=== PATIENT | female | born 1945 | race Caucasian/White ===

== ENCOUNTER 2017-02-08 19:57 | Emergency (ER) | payer OTHER, MEDICAID ==
[~2017-02-08] VITALS: Ht 162.6 cm; Wt 84.8 kg
[~2017-02-08 19:57] MED LIST: AGG25C PO; ARIP5TAB13 PO; BACL10TA PO; CARB25TA77 PO; CITA-73 PO; HYDR25TA4 PO; LEVE100020 PO; LEVO25TA6 PO; LISI40TA PO; MIRT30TA PO; NITR400A5 SL; NOR10T PO; OMEP20CA5 PO; ROPI1TAB2 PO; SERT-274 PO; TEMA15CA PO
[2017-02-08 23:07] LABS: Basophils # (auto) 0.1 uL; Basophils % (auto) 1.4 % (0.0-2.0); Eosinophils # (auto) 0.5 uL; Eosinophils % (auto) 5.9 % (0.0-7.0); Hematocrit 37.5 % (36.0-46.0); Hemoglobin 12.1 g/dL (12.2-16.2); Lymphocytes # (auto) 2.5 uL; Lymphocytes % (auto) 28.4 % (10.0-50.0); Mean Corpuscular Hemoglobin 27.3 pg (28.0-32.0); Mean Corpuscular Hgb Conc. 32.4 g/dL (32.0-36.0); Mean Corpuscular Volume 84.3 fL (80.0-100.0); Mean Platelet Volume 9.3 fL (7.4-10.4); Monocytes % (auto) 11.2 % (0.0-12.0); Neutrophils # (auto) 4.6 uL; Neutrophils % (auto) 53.1 % (37.0-80.0); Platelet Count (auto) 297 10^3/uL (140-450); White Blood Cell 8.8 10^3/uL (4.4-10.8)
[2017-02-08 23:29] LABS: Albumin 2.9 g/dL (3.4-5.0); Alkaline Phosphatase 89 U/L (45-117); Anion Gap 7 (5-15); Aspartate Aminotransferase 15 U/L (15-37); BUN/Creatinine Ratio 22.2; Bilirubin, Total 0.2 mg/dL (0.2-1.0); Blood Urea Nitrogen 18 mg/dL (7-18); Calcium 8.3 mg/dL (8.5-10.1); Carbon Dioxide 30 mmol/L (21-32); Chloride 107 mmol/L (98-107); GFR African American 90 mL/min; GFR Non-African American 74 mL/min; Glucose 99 mg/dL (74-106); Potassium 3.9 mmol/L (3.5-5.1); Sodium 144 mmol/L (136-145); Total Protein 7.5 g/dL (6.4-8.2)
[2017-02-09] MEDS ORDERED: MORPHINE SULFATE 4 MG/ML SYRG IV ONE (00:30)
[2017-02-09] MEDS ORDERED: ONDANSETRON HCL 4 MG/2 ML VIAL IV ONE (00:30)
[2017-02-09 00:52] LABS: INR 0.95 (0.9-1.15); Prothrombin Time 10.3 sec (9.37-12.3)
[2017-02-09] MEDS ORDERED: IPRATROPIUM BROM 0.5 MG/2.5ML INH SOL NEB ONE (04:00)
[2017-02-09] MEDS ORDERED: ALBUTEROL SULF 2.5 MG/0.5ML(0.5%) NEB SOLN NEB ONE (04:00)
[2017-02-09 05:38] VITALS: BP 158/62
== END 2017-02-09 06:12 | disposition home or self-care (01) ==
LOC: ER 20:01
DX: R04.0 Epistaxis (principal); I10 Essential (primary) hypertension; I11.0 Hypertensive heart disease with heart failure; I50.9 Heart failure, unspecified; J44.9 Chronic obstructive pulmonary disease, unspecified; K21.9 Gastro-esophageal reflux disease without esophagitis; F17.210 Nicotine dependence, cigarettes, uncomplicated; Z90.710 Acquired absence of both cervix and uterus; Z98.890 Other specified postprocedural states; Z88.1 Allergy status to other antibiotic agents; Z88.0 Allergy status to penicillin; Z88.2 Allergy status to sulfonamides
CPT/HCPCS: 36415; 71010; 80053; 84484; 85025; 85610; 85730; 93005; 94640; 96374; 96375; 99285; J2270; J2405

== ENCOUNTER 2017-08-24 09:36 | Emergency (ER) | payer OTHER, MEDICAID ==
[~2017-08-24] VITALS: Ht 162.6 cm; Wt 75.7 kg
[~2017-08-24 09:36] MED LIST changes: -ARIP5TAB13 PO; +ARIP5TAB14 PO; -OMEP20CA5 PO; +OMEP20CA74 PO
[2017-08-24 10:12] LABS: Basophils # (auto) 0 uL; Basophils % (auto) 0.3 % (0.0-2.0); Eosinophils # (auto) 0.1 uL; Eosinophils % (auto) 0.8 % (0.0-7.0); Hematocrit 38.5 % (36.0-46.0); Hemoglobin 12.7 g/dL (12.2-16.2); Lymphocytes # (auto) 1.7 uL; Lymphocytes % (auto) 24.9 % (10.0-50.0); Mean Corpuscular Volume 88.1 fL (80.0-100.0); Mean Platelet Volume 8.8 fL (6.9-10.8); Monocytes # (auto) 0.6 uL; Monocytes % (auto) 8.5 % (0.0-12.0); Neutrophils # (auto) 4.6 uL; Neutrophils % (auto) 65.5 % (37.0-80.0); Platelet Count (auto) 318 10^3/uL (140-450); Red Cell Distribution Width 16.4 % (11.8-14.3)
[2017-08-24 10:30] LABS: Alkaline Phosphatase 84 U/L (45-117); Anion Gap 7 (5-15); Aspartate Aminotransferase 11 U/L (15-37); BUN/Creatinine Ratio 12.3; Bilirubin, Total 0.4 mg/dL (0.2-1.0); Blood Urea Nitrogen 9 mg/dL (7-18); Calcium 8.6 mg/dL (8.5-10.1); Carbon Dioxide 27 mmol/L (21-32); Chloride 103 mmol/L (98-107); GFR African American 101 mL/min; GFR Non-African American 84 mL/min; Glucose 86 mg/dL (74-106); Magnesium 2.3 mg/dL (1.6-2.6); Potassium 4.6 mmol/L (3.5-5.1); Sodium 137 mmol/L (136-145); Total Protein 7.6 g/dL (6.4-8.2)
[2017-08-24 12:30] VITALS: BP 193/95
[2017-08-24] MEDS ORDERED: NITROFURANTOIN (MONO) 100 mg CAP PO ONE (12:30)
[2017-08-24] MEDS ORDERED: cloNIDine HCL 0.1 MG TAB PO ONE (12:45)
== END 2017-08-24 13:50 | disposition home or self-care (01) ==
LOC: EDBD 09:36 → ER 09:36
DX: R07.89 Other chest pain (principal); J44.9 Chronic obstructive pulmonary disease, unspecified; I50.9 Heart failure, unspecified; I11.0 Hypertensive heart disease with heart failure; F17.210 Nicotine dependence, cigarettes, uncomplicated; R06.02 Shortness of breath; Z88.1 Allergy status to other antibiotic agents; Z88.0 Allergy status to penicillin; Z90.710 Acquired absence of both cervix and uterus; Z79.899 Other long term (current) drug therapy
CPT/HCPCS: 36415; 71010; 80053; 83735; 84484; 85025; 93005; 94761

== ENCOUNTER 2017-11-21 17:54 | Inpatient (IN) | payer OTHER, MEDICAID ==
[~2017-11-21] VITALS: Ht 162.6 cm; Wt 77.1 kg
[~2017-11-21 17:54] MED LIST changes: +AGG25C; +ALPR0.254; +BACL10TA; +CARB25TA75; +CHL4PW; +CITA-77; +FAMO40TA49; +FLUT110A; +HYDR-2595; +LEVE100020; +LISI40TA; +OMEP20TA44; +ROPI1TAB2; +SERT-160; +TRAZ50TA2
[2017-11-21 19:00] LABS: Urine Bacteria NONE SEEN /hpf (None Seen); Urine Blood 3+ /uL (Negative); Urine Mucus FEW (None Seen); Urine Specific Gravity 1.018 (1.001-1.035); Urine WBC 14 /hpf (0 - 5)
[2017-11-21 19:13] LABS: Basophils # (auto) 0.2 uL; Basophils % (auto) 2.4 % (0.0-2.0); Eosinophils # (auto) 0.1 uL; Eosinophils % (auto) 1.9 % (0.0-7.0); Hematocrit 38.9 % (36.0-46.0); Hemoglobin 12.8 g/dL (12.2-16.2); Lymphocytes # (auto) 2.2 uL; Mean Corpuscular Volume 88.1 fL (80.0-100.0); Monocytes # (auto) 0.8 uL; Monocytes % (auto) 10.7 % (0.0-12.0); Neutrophils # (auto) 3.7 uL; Nucleated Red Blood Cells % 0.1 %; Platelet Count (auto) 279 10^3/uL (140-450); Red Blood Cells 4.41 10^6/uL (4.0-5.20); Red Cell Distribution Width 17.9 % (11.8-14.3)
[2017-11-21 19:30] LABS: Alanine Aminotransferase < 6 U/L (13-56); Albumin 3.2 g/dL (3.4-5.0); Anion Gap 7 (5-15); Aspartate Aminotransferase 16 U/L (15-37); BUN/Creatinine Ratio 25.4; Blood Urea Nitrogen 17 mg/dL (7-18); Calcium 8.9 mg/dL (8.5-10.1); Carbon Dioxide 27 mmol/L (21-32); Chloride 102 mmol/L (98-107); GFR African American 112 mL/min; GFR Non-African American 92 mL/min; Glucose 88 mg/dL (74-106); Potassium 3.5 mmol/L (3.5-5.1); Sodium 136 mmol/L (136-145)
[2017-11-21 19:33] LABS: Alkaline Phosphatase 68 U/L (45-117); Bilirubin, Total 0.2 mg/dL (0.2-1.0); Total Protein 7.8 g/dL (6.4-8.2)
[2017-11-21] MEDS ORDERED: cloNIDine HCL 0.1 MG TAB ONE (23:45)
[2017-11-22] MEDS ORDERED: cloNIDine HCL 0.1 MG TAB PO ONE (00:15)
[2017-11-22] MEDS ORDERED: MORPHINE SULFATE 10 MG/ML INJ 1ML SDV IV ONE (01:30)
[2017-11-22] MEDS ORDERED: ONDANSETRON HCL 4 MG/2 ML VIAL IV ONE (01:30)
[2017-11-22 01:58] LABS: Amylase 37 U/L (25-115); Lipase 108 U/L (73-393)
[2017-11-22] MEDS: SODIUM CHLORIDE 0.9% 1,000 ML IV SCH ×3 (06:16→23:42)
[2017-11-22] MEDS ORDERED: ONDANSETRON HCL 4 MG/2 ML VIAL IV PRN (06:30)
[2017-11-22] MEDS ORDERED: CARBIDOPA W LEVODOPA 25/100mg TABLET PO ONE (06:30)
[2017-11-22] MEDS ORDERED: MORPHINE SULFATE 10 MG/ML INJ 1ML SDV IV PRN (06:30)
[2017-11-22] MEDS ORDERED: cloNIDine HCL 0.1 MG TAB PO PRN (06:30)
[2017-11-22] MEDS ORDERED: TEMAZEPAM 15 MG CAP PO PRN (06:30)
[2017-11-22] MEDS ORDERED: NITROGLYCERIN 0.4 MG SL TAB SL PRN (06:30)
[2017-11-22] MEDS ORDERED: ACETAMINOPHEN 325 MG TAB PO PRN (06:30)
[2017-11-22 06:55] LABS: Hemoglobin 13.5 g/dL (12.2-16.2)
[2017-11-22] MEDS ORDERED: LEVE500T22 PO (10:24)
[2017-11-22] MEDS ORDERED: HYDR-4683 PO (10:24)
[2017-11-22] MEDS ORDERED: ALPR1TAB7 PO (10:24)
[2017-11-22 10:26] VITALS: BP 169/71
[2017-11-22] MEDS: SERTRALINE HCL 50 MG TAB PO SCH (10:27)
[2017-11-22] MEDS: PANTOPRAZOLE 40 MG/10 ML VIAL IV SCH (10:27)
[2017-11-22] MEDS: LISINOPRIL 20 MG TAB PO SCH (10:28)
[2017-11-22] MEDS: CITALOPRAM HYDROBR 20 MG TAB PO SCH (10:28)
[2017-11-22] MEDS: LEVETIRACETAM 500 MG TAB PO SCH ×2 (10:28→21:45)
[2017-11-22] MEDS: cefTRIAXone 1GM/10ml IVPUSH 10 ML IV SCH (10:29)
[2017-11-22] MEDS: HYDROcodone-ACET 5/325MG TAB PO PRN ×2 (10:44→16:06)
[2017-11-22 12:30] LABS: INR 0.95 (0.9-1.15); Prothrombin Time 10.4 sec (9.37-12.3)
[2017-11-22 17:00] VITALS: BP 174/74
[2017-11-22 22:00] VITALS: BP 131/66
[2017-11-23 05:46] VITALS: BP 145/65
[2017-11-23 06:57] LABS: Albumin 2.8 g/dL (3.4-5.0); BUN/Creatinine Ratio 16.9; Calcium 8.5 mg/dL (8.5-10.1); Magnesium 2.1 mg/dL (1.6-2.6); Potassium 3.9 mmol/L (3.5-5.1)
[2017-11-23 06:59] LABS: Basophils # (auto) 0.1 uL; Basophils % (auto) 1.2 % (0.0-2.0); Bilirubin, Total 0.4 mg/dL (0.2-1.0); Eosinophils # (auto) 0.1 uL; Eosinophils % (auto) 1.6 % (0.0-7.0); Hematocrit 35.4 % (36.0-46.0); Hemoglobin 11.7 g/dL (12.2-16.2); Lymphocytes # (auto) 1.2 uL; Lymphocytes % (auto) 16.8 % (10.0-50.0); Mean Corpuscular Hemoglobin 29.2 pg (28.0-32.0); Mean Corpuscular Hgb Conc. 33.1 g/dL (32.0-36.0); Mean Corpuscular Volume 88.1 fL (80.0-100.0); Monocytes # (auto) 0.8 uL; Monocytes % (auto) 11.2 % (0.0-12.0); Neutrophils % (auto) 69.2 % (37.0-80.0); Platelet Count (auto) 255 10^3/uL (140-450); Red Blood Cells 4.02 10^6/uL (4.0-5.20); Red Cell Distribution Width 17.4 % (11.8-14.3); Total Protein 6.8 g/dL (6.4-8.2); White Blood Cell 7.3 10^3/uL (4.4-10.8)
[2017-11-23 08:53] VITALS: BP 140/61
[2017-11-23] MEDS: cefTRIAXone 1GM/10ml IVPUSH 10 ML IV SCH (09:00)
[2017-11-23] MEDS: CITALOPRAM HYDROBR 20 MG TAB PO SCH (10:30)
[2017-11-23] MEDS: LEVETIRACETAM 500 MG TAB PO SCH (10:30)
[2017-11-23] MEDS: SERTRALINE HCL 50 MG TAB PO SCH (10:30)
[2017-11-23] MEDS: PANTOPRAZOLE 40 MG/10 ML VIAL IV SCH (10:30)
[2017-11-23] MEDS: LISINOPRIL 20 MG TAB PO SCH (10:31)
[2017-11-23 13:19] VITALS: BP 144/71
[2017-11-23 13:24] VITALS: BP 144/71
== END 2017-11-23 15:00 | disposition home or self-care (01) | DRG 292 ==
LOC: ER 17:54 → EDBD 17:54 → EDUNIT# 17:55 → TELE 17:55 → TELE-CENTR 11-22 08:19
PROVIDERS: ADMIT Nurse Practitioner; ATTEND Internal Medicine
DX: I11.0 Hypertensive heart disease with heart failure (principal); N39.0 Urinary tract infection, site not specified; J44.9 Chronic obstructive pulmonary disease, unspecified; G40.909 Epilepsy, unspecified, not intractable, without status epilepticus; I50.9 Heart failure, unspecified; R31.0 Gross hematuria; F41.9 Anxiety disorder, unspecified; F32.9 Major depressive disorder, single episode, unspecified; R59.1 Generalized enlarged lymph nodes; K57.50 Diverticulosis of both small and large intestine without perforation or abscess without bleeding; Z80.0 Family history of malignant neoplasm of digestive organs; Z80.1 Family history of malignant neoplasm of trachea, bronchus and lung; Z80.3 Family history of malignant neoplasm of breast; Z80.41 Family history of malignant neoplasm of ovary; Z80.8 Family history of malignant neoplasm of other organs or systems; Z81.8 Family history of other mental and behavioral disorders; Z82.5 Family history of asthma and other chronic lower respiratory diseases; Z82.49 Family history of ischemic heart disease and other diseases of the circulatory system; Z82.62 Family history of osteoporosis; Z82.3 Family history of stroke; Z82.0 Family history of epilepsy and other diseases of the nervous system; Z83.3 Family history of diabetes mellitus; Z86.73 Personal history of transient ischemic attack (TIA), and cerebral infarction without residual deficits; Z90.49 Acquired absence of other specified parts of digestive tract; Z90.710 Acquired absence of both cervix and uterus; Z88.1 Allergy status to other antibiotic agents; Z88.0 Allergy status to penicillin; Z88.2 Allergy status to sulfonamides; Z88.8 Allergy status to other drugs, medicaments and biological substances
CPT/HCPCS: 36415; 74176; 80053; 81001; 82150; 82270; 83690; 83735; 85014; 85018; 85025; 85610; 87081; 87086; 93005; 96361; 96374; 96375; C9113; J2405

== ENCOUNTER 2017-12-05 15:22 | Inpatient (IN) | payer OTHER, MEDICAID ==
[~2017-12-05] VITALS: Ht 170.2 cm; Wt 81.6 kg
[~2017-12-05 15:22] MED LIST changes: -AGG25C; -ALPR0.254; +ALPR1TAB7 PO; -BACL10TA; -CARB25TA75; -CHL4PW; -CITA-77; -FAMO40TA49; -FLUT110A; -HYDR-2595; +HYDR-4683 PO; -LEVE100020; +LEVE500T22 PO; -LISI40TA; -OMEP20TA44; -ROPI1TAB2; -SERT-160; -TRAZ50TA2
[2017-12-05 19:40] LABS: Basophils # (auto) 0 uL; Basophils % (auto) 0.2 % (0.0-2.0); Eosinophils # (auto) 0.2 uL; Eosinophils % (auto) 2.4 % (0.0-7.0); Hematocrit 36.8 % (36.0-46.0); Hemoglobin 12.3 g/dL (12.2-16.2); Lymphocytes # (auto) 2.4 uL; Lymphocytes % (auto) 27.8 % (10.0-50.0); Mean Corpuscular Hgb Conc. 33.3 g/dL (32.0-36.0); Monocytes # (auto) 1.2 uL; Monocytes % (auto) 13.4 % (0.0-12.0); Neutrophils # (auto) 4.8 uL; Neutrophils % (auto) 56.2 % (37.0-80.0); Platelet Count (auto) 308 10^3/uL (140-450); Red Blood Cells 4.23 10^6/uL (4.0-5.20); Red Cell Distribution Width 17.5 % (11.8-14.3); White Blood Cell 8.6 10^3/uL (4.4-10.8)
[2017-12-05 19:45] LABS: INR 0.98 (0.9-1.15); Partial Thromboplastin Time 28.6 sec (22.64-33.71); Prothrombin Time 10.7 sec (9.37-12.3)
[2017-12-05 19:46] LABS: Alanine Aminotransferase 8 U/L (13-56); Anion Gap 11 (5-15); Aspartate Aminotransferase 16 U/L (15-37); BUN/Creatinine Ratio 15.2; Blood Urea Nitrogen 10 mg/dL (7-18); Calcium 8.5 mg/dL (8.5-10.1); Carbon Dioxide 24 mmol/L (21-32); Chloride 101 mmol/L (98-107); GFR African American 114 mL/min; GFR Non-African American 94 mL/min; Glucose 83 mg/dL (74-106); Magnesium 1.8 mg/dL (1.6-2.6); Potassium 3.5 mmol/L (3.5-5.1); Sodium 136 mmol/L (136-145)
[2017-12-05 19:52] LABS: Alkaline Phosphatase 77 U/L (45-117); Bilirubin, Total 0.3 mg/dL (0.2-1.0); Total Protein 7.8 g/dL (6.4-8.2)
[2017-12-05] MEDS ORDERED: MORPHINE SULF INJ 2 MG/ML SYRINGE 1ML IV PRN (23:00)
[2017-12-05] MEDS ORDERED: ONDANSETRON HCL 4 MG/2 ML VIAL IV PRN (23:00)
[2017-12-05] MEDS ORDERED: NITROGLYCERIN 0.4 MG SL TAB SL PRN (23:00)
[2017-12-05] MEDS ORDERED: cloNIDine HCL 0.1 MG TAB PO ONE (23:00)
[2017-12-05] MEDS ORDERED: TEMAZEPAM 15 MG CAP PO PRN (23:00)
[2017-12-05] MEDS: LORazepam 0.5 MG TAB PO PRN (23:51)
[2017-12-05] MEDS: HYDROcodone-ACET 5/325MG TAB PO PRN (23:51)
[2017-12-06] VITALS (7 sets, daily range): BP systolic 115–162; BP diastolic 46–73
[2017-12-06] MEDS ORDERED: cloNIDine HCL 0.1 MG TAB PO PRN (00:45)
[2017-12-06 01:45] LABS: Urine Bacteria FEW /hpf (None Seen); Urine Blood Negative /uL (Negative); Urine Specific Gravity 1.008 (1.001-1.035); Urine WBC 3 /hpf (0 - 5)
[2017-12-06] MEDS ORDERED: ONDA8TAB6 PO (02:41)
[2017-12-06] MEDS ORDERED: AMLO5TAB2 PO (02:41)
[2017-12-06] MEDS ORDERED: DONE10TA40 PO (02:41)
[2017-12-06] MEDS ORDERED: CLON0.2T PO (02:41)
[2017-12-06] MEDS ORDERED: [UNRECOGNIZED DRUG - CODE] PO (02:41)
[2017-12-06] MEDS ORDERED: OLAN10TA29 PO (02:41)
[2017-12-06] MEDS ORDERED: METO25TA5 PO (02:43)
[2017-12-06] MEDS ORDERED: ALPR1TAB7 PO (02:43)
[2017-12-06] MEDS ORDERED: BUSP5TAB51 PO (02:44)
[2017-12-06] MEDS: HYDROcodone-ACET 5/325MG TAB PO PRN (05:34)
[2017-12-06] MEDS: CARBIDOPA W LEVODOPA 25/100mg TABLET PO SCH ×2 (06:06→13:33)
[2017-12-06] MEDS: ALBUTEROL SULF 2.5 MG/0.5ML(0.5%) NEB SOLN NEB SCH ×2 (06:41→11:47)
[2017-12-06] MEDS: IPRATROPIUM BROM 0.5 MG/2.5ML INH SOL NEB SCH ×2 (06:41→11:47)
[2017-12-06] MEDS ORDERED: LEVOTHYROXINE SODIUM 25 MCG TAB PO SCH (07:00)
[2017-12-06 07:17] LABS: Basophils # (auto) 0.1 uL; Basophils % (auto) 1.9 % (0.0-2.0); Eosinophils # (auto) 0.2 uL; Eosinophils % (auto) 2.6 % (0.0-7.0); Hematocrit 36.5 % (36.0-46.0); Lymphocytes # (auto) 1.2 uL; Lymphocytes % (auto) 20.9 % (10.0-50.0); Mean Corpuscular Hemoglobin 28.8 pg (28.0-32.0); Mean Corpuscular Hgb Conc. 32.9 g/dL (32.0-36.0); Mean Corpuscular Volume 87.5 fL (80.0-100.0); Monocytes # (auto) 0.7 uL; Monocytes % (auto) 11.7 % (0.0-12.0); Neutrophils # (auto) 3.7 uL; Neutrophils % (auto) 62.9 % (37.0-80.0); Nucleated Red Blood Cells % 0.1 %; Platelet Count (auto) 301 10^3/uL (140-450); Red Blood Cells 4.18 10^6/uL (4.0-5.20); Red Cell Distribution Width 17.1 % (11.8-14.3); White Blood Cell 5.9 10^3/uL (4.4-10.8)
[2017-12-06 07:32] LABS: BUN/Creatinine Ratio 10.6; Calcium 8.4 mg/dL (8.5-10.1); Potassium 3.6 mmol/L (3.5-5.1)
[2017-12-06] MEDS ORDERED: ASPirin-EC 81 mg tab PO SCH (10:00)
[2017-12-06] MEDS ORDERED: LISINOPRIL 20 MG TAB PO SCH (10:00)
[2017-12-06] MEDS ORDERED: LEVETIRACETAM 500 MG TAB PO SCH (10:00)
[2017-12-06] MEDS ORDERED: amLODIPine BESYLATE 5 MG TAB PO SCH (13:30)
[2017-12-06] MEDS: LORazepam 0.5 MG TAB PO PRN (13:33)
== END 2017-12-06 18:40 | disposition home health service (06) | DRG 313 ==
LOC: ER 15:22 → EDBD 15:22 → TELE 15:23 → TELE-EAST 23:49
PROVIDERS: ADMIT Nurse Practitioner Family; ATTEND Internal Medicine
DX: R07.89 Other chest pain (principal); G20 Parkinson's disease; I11.0 Hypertensive heart disease with heart failure; I50.42 Chronic combined systolic (congestive) and diastolic (congestive) heart failure; G40.909 Epilepsy, unspecified, not intractable, without status epilepticus; J44.9 Chronic obstructive pulmonary disease, unspecified; G89.29 Other chronic pain; M54.5 Low back pain; E66.9 Obesity, unspecified; F32.9 Major depressive disorder, single episode, unspecified; E03.9 Hypothyroidism, unspecified; G25.81 Restless legs syndrome; F17.210 Nicotine dependence, cigarettes, uncomplicated; F41.9 Anxiety disorder, unspecified; Z79.899 Other long term (current) drug therapy; Z82.0 Family history of epilepsy and other diseases of the nervous system; Z82.3 Family history of stroke; Z82.49 Family history of ischemic heart disease and other diseases of the circulatory system; Z83.3 Family history of diabetes mellitus; Z86.73 Personal history of transient ischemic attack (TIA), and cerebral infarction without residual deficits; Z90.710 Acquired absence of both cervix and uterus; Z68.28 Body mass index [BMI] 28.0-28.9, adult; Z88.1 Allergy status to other antibiotic agents; Z88.0 Allergy status to penicillin; Z88.2 Allergy status to sulfonamides
CPT/HCPCS: 36415; 71045; 80048; 80053; 81001; 83735; 83880; 84484; 85025; 85610; 85730; 87081; 93005; 94640

== ENCOUNTER 2018-01-14 10:40 | Inpatient (IN) | payer OTHER, MEDICAID ==
[~2018-01-14] VITALS: Ht 162.6 cm; Wt 67.6 kg
[~2018-01-14 10:40] MED LIST changes: -AGG25C PO; +AMLO5TAB2 PO; -ARIP5TAB14 PO; +BUSP5TAB51 PO; +DONE10TA40 PO; -HYDR25TA4 PO; -MIRT30TA PO; -NOR10T PO; +OLAN10TA29 PO; -OMEP20CA74 PO; -SERT-274 PO; -TEMA15CA PO
[2018-01-14 11:22] LABS: Basophils # (auto) 0.1 uL; Basophils % (auto) 1.1 % (0.0-2.0); Eosinophils # (auto) 0.1 uL; Eosinophils % (auto) 2.1 % (0.0-7.0); Hematocrit 40.9 % (36.0-46.0); Hemoglobin 13.8 g/dL (12.2-16.2); Lymphocytes # (auto) 1.4 uL; Lymphocytes % (auto) 20.9 % (10.0-50.0); Mean Corpuscular Hemoglobin 29.2 pg (28.0-32.0); Mean Corpuscular Hgb Conc. 33.6 g/dL (32.0-36.0); Mean Corpuscular Volume 86.8 fL (80.0-100.0); Monocytes # (auto) 0.6 uL; Monocytes % (auto) 8.8 % (0.0-12.0); Neutrophils # (auto) 4.7 uL; Neutrophils % (auto) 67.1 % (37.0-80.0); Nucleated Red Blood Cells % 0.1 %; Platelet Count (auto) 315 10^3/uL (140-450); Red Blood Cells 4.71 10^6/uL (4.0-5.20); Red Cell Distribution Width 15.8 % (11.8-14.3); White Blood Cell 6.9 10^3/uL (4.4-10.8)
[2018-01-14 11:35] LABS: INR 0.96 (0.9-1.15); Partial Thromboplastin Time 28.5 sec (22.64-33.71); Prothrombin Time 10.5 sec (9.37-12.3)
[2018-01-14 11:39] LABS: Alanine Aminotransferase 12 U/L (13-56); Albumin 3.2 g/dL (3.4-5.0); Alkaline Phosphatase 81 U/L (45-117); Anion Gap 7 (5-15); Aspartate Aminotransferase 17 U/L (15-37); BUN/Creatinine Ratio 11.8; Bilirubin, Total 0.2 mg/dL (0.2-1.0); Blood Urea Nitrogen 9 mg/dL (7-18); Calcium 8.7 mg/dL (8.5-10.1); Carbon Dioxide 25 mmol/L (21-32); Chloride 108 mmol/L (98-107); GFR African American 96 mL/min; GFR Non-African American 80 mL/min; Glucose 90 mg/dL (74-106); Magnesium 2.3 mg/dL (1.6-2.6); Potassium 3.8 mmol/L (3.5-5.1); Sodium 140 mmol/L (136-145); Total Protein 8.5 g/dL (6.4-8.2)
[2018-01-14 12:38] LABS: Urine Bacteria FEW /hpf (None Seen); Urine Blood TRACE /uL (Negative); Urine Specific Gravity 1.007 (1.001-1.035); Urine WBC 5 /hpf (0 - 5)
[2018-01-14] MEDS ORDERED: ENALAPRILAT 1.25 MG/ML-1ML VIAL IV PRN (13:45)
[2018-01-14] MEDS ORDERED: LORazepam 2MG/ML-1ML VIAL IV PRN (13:45)
[2018-01-14] MEDS ORDERED: BACLOFEN 10 MG TAB PO PRN (13:45)
[2018-01-14] MEDS ORDERED: PANTOPRAZOLE 40 MG/10 ML VIAL IV ONE (13:45)
[2018-01-14] MEDS ORDERED: cefTRIAXone 1GM/10ml IVPUSH 10 ML IV ONE (13:45)
[2018-01-14] MEDS ORDERED: LEVOTHYROXINE SODIUM 25 MCG TAB PO ONE (14:00)
[2018-01-14] MEDS ORDERED: amLODIPine BESYLATE 5 MG TAB PO ONE (14:00)
[2018-01-14] MEDS ORDERED: MORPHINE SULFATE 4 MG/ML SYR/VIAL IV PRN ×2 (14:15)
[2018-01-14] MEDS ORDERED: ACETAMINOPHEN 325 MG TAB PO PRN (14:15)
[2018-01-14] MEDS ORDERED: ASPirin-EC 81 mg tab PO ONE (14:15)
[2018-01-14] MEDS ORDERED: DOCUSATE SOD 100 MG CAP PO PRN (14:15)
[2018-01-14] MEDS ORDERED: TEMAZEPAM 15 MG CAP PO PRN (14:15)
[2018-01-14] MEDS ORDERED: ONDANSETRON HCL 4 MG/2 ML VIAL IV PRN (14:15)
[2018-01-14] MEDS ORDERED: NITROGLYCERIN 0.4 MG SL TAB SL PRN (14:15)
[2018-01-14] MEDS: HYDROcodone-ACET 5/325MG TAB PO PRN (14:48)
[2018-01-14] MEDS: ENOXAPARIN SOD 40 MG/0.4 ML SYRINGE SC SCH (14:48)
[2018-01-14] MEDS: cloNIDine HCL 0.1 MG TAB PO PRN (16:40)
[2018-01-14] MEDS: ALPRAZolam 0.5 MG TAB PO PRN (16:40)
[2018-01-14] MEDS: CARBIDOPA W LEVODOPA 25/100mg TABLET PO SCH ×2 (18:00→22:48)
[2018-01-14] MEDS: BOOST PLUS 8 ounce PO SCH (18:53)
[2018-01-14 20:00] VITALS: BP 105/46
[2018-01-14 22:00] VITALS: BP 105/46
[2018-01-14] MEDS ORDERED: DONEPEZIL HYDROCHLORIDE 5 MG TAB PO SCH (22:00)
[2018-01-14] MEDS ORDERED: FAMOTIDINE 20 MG TAB PO SCH (22:00)
[2018-01-14] MEDS ORDERED: ATORVASTATIN 20 MG TAB PO SCH (22:00)
[2018-01-14] MEDS: LEVETIRACETAM 500 MG TAB PO SCH (22:46)
[2018-01-14] MEDS: busPIRone HCL 10 MG TAB PO SCH (22:47)
[2018-01-14] MEDS: SODIUM CHLOR 0.9% PF (SALINE LOCK) 10ML VIAL IV SCH (22:49)
[2018-01-14 23:16] VITALS: BP 105/46
[2018-01-15] MEDS: HYDROcodone-ACET 5/325MG TAB PO PRN (02:22)
[2018-01-15 05:00] VITALS: BP 134/65
[2018-01-15] MEDS: ALPRAZolam 0.5 MG TAB PO PRN ×2 (05:05→16:43)
[2018-01-15] MEDS: CARBIDOPA W LEVODOPA 25/100mg TABLET PO SCH ×2 (06:09→11:56)
[2018-01-15 06:29] LABS: Basophils # (auto) 0.1 uL; Eosinophils # (auto) 0.2 uL; Eosinophils % (auto) 2.5 % (0.0-7.0); Hematocrit 42.3 % (36.0-46.0); Hemoglobin 13.8 g/dL (12.2-16.2); Lymphocytes # (auto) 1.9 uL; Lymphocytes % (auto) 26.1 % (10.0-50.0); Mean Corpuscular Hemoglobin 28.8 pg (28.0-32.0); Mean Corpuscular Hgb Conc. 32.8 g/dL (32.0-36.0); Monocytes # (auto) 0.8 uL; Monocytes % (auto) 10.5 % (0.0-12.0); Neutrophils # (auto) 4.3 uL; Neutrophils % (auto) 59.9 % (37.0-80.0); Nucleated Red Blood Cells % 0.1 %; Platelet Count (auto) 255 10^3/uL (140-450); Red Cell Distribution Width 15.9 % (11.8-14.3); White Blood Cell 7.2 10^3/uL (4.4-10.8)
[2018-01-15] MEDS: SODIUM CHLOR 0.9% PF (SALINE LOCK) 10ML VIAL IV SCH ×2 (06:42→13:33)
[2018-01-15 06:47] LABS: Alanine Aminotransferase < 6 U/L (13-56); Alkaline Phosphatase 74 U/L (45-117); Anion Gap 8 (5-15); Aspartate Aminotransferase 19 U/L (15-37); BUN/Creatinine Ratio 14.7; Bilirubin, Total 0.3 mg/dL (0.2-1.0); Blood Urea Nitrogen 11 mg/dL (7-18); Calcium 8.9 mg/dL (8.5-10.1); Carbon Dioxide 26 mmol/L (21-32); Chloride 106 mmol/L (98-107); GFR African American 98 mL/min; GFR Non-African American 81 mL/min; Glucose 79 mg/dL (74-106); Potassium 3.7 mmol/L (3.5-5.1); Sodium 140 mmol/L (136-145)
[2018-01-15] MEDS ORDERED: LEVOTHYROXINE SODIUM 25 MCG TAB PO SCH (07:00)
[2018-01-15 09:00] VITALS: BP 129/63
[2018-01-15] MEDS ORDERED: cefTRIAXone 1GM/10ml IVPUSH 10 ML IV SCH (09:00)
[2018-01-15] MEDS: BOOST PLUS 8 ounce PO SCH ×2 (09:38→11:56)
[2018-01-15] MEDS: ENOXAPARIN SOD 40 MG/0.4 ML SYRINGE SC SCH (09:39)
[2018-01-15] MEDS: LEVETIRACETAM 500 MG TAB PO SCH (09:40)
[2018-01-15] MEDS: busPIRone HCL 10 MG TAB PO SCH (09:40)
[2018-01-15] MEDS ORDERED: MULTIPLE VITAMIN TAB PO SCH (10:00)
[2018-01-15] MEDS ORDERED: amLODIPine BESYLATE 5 MG TAB PO SCH (10:00)
[2018-01-15] MEDS ORDERED: ASPirin-EC 81 mg tab PO SCH (10:00)
[2018-01-15] MEDS ORDERED: OLANZapine 5 MG TAB PO SCH (10:00)
[2018-01-15] MEDS ORDERED: PANTOPRAZOLE 40 MG/10 ML VIAL IV SCH (10:00)
[2018-01-15 12:30] VITALS: BP 120/54
[2018-01-15 13:59] LABS: Cholesterol 192 mg/dL (< 200); HDL Cholesterol 37 mg/dL (40-59); LDL Cholesterol 143 mg/dL (< 100); Triglycerides 155 mg/dL (< 150)
[2018-01-15] MEDS ORDERED: CLO01T PO (14:58)
[2018-01-15] MEDS: cloNIDine HCL 0.1 MG TAB PO PRN (16:43)
[2018-01-15 17:00] VITALS: BP 177/78
== END 2018-01-15 19:12 | disposition home health service (06) | DRG 305 ==
LOC: EDSEX 10:40 → ER 10:40 → EDBD 10:40 → TELE 10:41 → TELE-WESTW 18:50
PROVIDERS: ADMIT Internal Medicine; ATTEND Internal Medicine
DX: I16.0 Hypertensive urgency (principal); E44.0 Moderate protein-calorie malnutrition; E11.22 Type 2 diabetes mellitus with diabetic chronic kidney disease; G20 Parkinson's disease; N39.0 Urinary tract infection, site not specified; I13.0 Hypertensive heart and chronic kidney disease with heart failure and stage 1 through stage 4 chronic kidney disease, or unspecified chronic kidney disease; I50.9 Heart failure, unspecified; N18.2 Chronic kidney disease, stage 2 (mild); E03.9 Hypothyroidism, unspecified; F03.90 Unspecified dementia, unspecified severity, without behavioral disturbance, psychotic disturbance, mood disturbance, and anxiety; G40.909 Epilepsy, unspecified, not intractable, without status epilepticus; J44.9 Chronic obstructive pulmonary disease, unspecified; G96.8 Other specified disorders of central nervous system; F41.9 Anxiety disorder, unspecified; F32.9 Major depressive disorder, single episode, unspecified; I70.0 Atherosclerosis of aorta; Z82.0 Family history of epilepsy and other diseases of the nervous system; Z82.3 Family history of stroke; Z82.49 Family history of ischemic heart disease and other diseases of the circulatory system; Z68.25 Body mass index [BMI] 25.0-25.9, adult; Z83.3 Family history of diabetes mellitus; Z90.710 Acquired absence of both cervix and uterus; Z88.2 Allergy status to sulfonamides; Z88.1 Allergy status to other antibiotic agents; Z88.0 Allergy status to penicillin; Z88.8 Allergy status to other drugs, medicaments and biological substances; Z79.899 Other long term (current) drug therapy; Z86.73 Personal history of transient ischemic attack (TIA), and cerebral infarction without residual deficits
CPT/HCPCS: 36415; 70450; 70551; 71045; 80053; 80061; 81001; 83036; 83735; 84484; 85025; 85610; 85730; 87086; 92610; 93005; 93306; 93886; 94761; 96361; 96374; 96375; C9113; J2405

== ENCOUNTER 2018-01-29 12:28 | Emergency (ER) | payer OTHER, MEDICAID ==
[~2018-01-29] VITALS: Ht 162.6 cm; Wt 70.3 kg
[~2018-01-29 12:28] MED LIST changes: +CLO01T PO
[2018-01-29] MEDS ORDERED: IPRATROPIUM BROM 0.5 MG/2.5ML INH SOL HHN ONE (13:15)
[2018-01-29] MEDS ORDERED: ALBUTEROL SULF 2.5 MG/0.5ML(0.5%) NEB SOLN HHN ONE (13:15)
[2018-01-29] MEDS ORDERED: methylPREDNISolone SOD SUCC 125 MG/2 ML VL IM ONE (13:15)
[2018-01-29 13:45] LABS: Alcohol, Urine < 3.0 mg/dL (0-5); Amphetamine Screen, Urine NEGATIVE (NEGATIVE); Barbiturate Scree,Urine NEGATIVE (NEGATIVE); Benzodiazephine Screen, Urine POSITIVE (NEGATIVE); Cannabinoid Screen, Urine NEGATIVE (NEGATIVE); Cocaine Screen, Urine NEGATIVE (NEGATIVE); Opiate Scree,Urine NEGATIVE (NEGATIVE); Phencyclidine Screen, Urine NEGATIVE (NEGATIVE)
[2018-01-29 14:06] LABS: Acetaminophen < 2.0 ug/mL (10-30); Salicylate 4.9 mg/dL (2.8-20.0)
[2018-01-29 14:22] VITALS: BP 158/83
== END 2018-01-29 14:26 | disposition home or self-care (01) ==
LOC: ER 12:28 → EDUNIT# 12:28 → EDBD 12:28 → MERGE 12:28 → ER 14:26
DX: F91.9 Conduct disorder, unspecified (principal); F32.9 Major depressive disorder, single episode, unspecified; J44.9 Chronic obstructive pulmonary disease, unspecified; E07.89 Other specified disorders of thyroid; I11.0 Hypertensive heart disease with heart failure; I50.9 Heart failure, unspecified; F17.210 Nicotine dependence, cigarettes, uncomplicated; G20 Parkinson's disease; Z86.73 Personal history of transient ischemic attack (TIA), and cerebral infarction without residual deficits; Z90.710 Acquired absence of both cervix and uterus
CPT/HCPCS: 36415; 80307; 80320; 80329; 94640; 96372; 99284; J2930

== ENCOUNTER 2018-03-16 15:42 | Inpatient (IN) | payer OTHER, MEDICAID ==
[2018-03-15] MEDS: VANCOMYCIN 1GM/250ML 250 ML IV SCH (23:30)
[~2018-03-16] VITALS: Ht 152.4 cm; Wt 69.3 kg
[2018-03-16] VITALS (18 sets, daily range): BP systolic 102–149; BP diastolic 54–77
[~2018-03-16 15:42] MED LIST changes: +AGG25C PO; -BACL10TA PO; -CITA-73 PO; -DONE10TA40 PO; -LEVE100020 PO; +MIRT30TA OR; -NITR400A5 SL; -OLAN10TA29 PO; +OLAN5TAB30 PO
[2018-03-16] MEDS ORDERED: methylPREDNISolone SOD SUCC 125 MG/2 ML VL ONE (15:52)
[2018-03-16] MEDS ORDERED: ETOMIDATE (2MG/ML) 20ML VIAL IV ONE ×2 (15:55→16:30)
[2018-03-16] MEDS ORDERED: MIDAZOLAM DRIP 50 mg/50mL 50 ML IV ONE ×2 (15:55→16:12)
[2018-03-16] MEDS ORDERED: SUCCINYLCHOLINE CHLORIDE 20 MG/ML 10ML VIAL IV ONE ×2 (15:56→16:30)
[2018-03-16] MEDS ORDERED: methylPREDNISolone SOD SUCC 125 MG/2 ML VL IV ONE (16:00)
[2018-03-16 16:10] LABS: Basophils # (auto) 0.1 uL; Basophils % (auto) 0.7 % (0.0-2.0); Eosinophils # (auto) 0.2 uL; Eosinophils % (auto) 0.9 % (0.0-7.0); Hematocrit 49.3 % (36.0-46.0); Lymphocytes # (auto) 2.4 uL; Lymphocytes % (auto) 13.3 % (10.0-50.0); Mean Corpuscular Hemoglobin 29.2 pg (28.0-32.0); Mean Corpuscular Hgb Conc. 32.5 g/dL (32.0-36.0); Mean Corpuscular Volume 89.7 fL (80.0-100.0); Monocytes # (auto) 1.2 uL; Monocytes % (auto) 6.6 % (0.0-12.0); Neutrophils # (auto) 14.4 uL; Neutrophils % (auto) 78.5 % (37.0-80.0); Nucleated Red Blood Cells % 0.1 %; Platelet Count (auto) 365 10^3/uL (140-450); Red Blood Cells 5.49 10^6/uL (4.0-5.20); Red Cell Distribution Width 16.8 % (11.8-14.3); White Blood Cell 18.4 10^3/uL (4.4-10.8)
[2018-03-16 16:24] LABS: INR 1.12 (0.9-1.15); Partial Thromboplastin Time 29.3 sec (22.64-33.71); Prothrombin Time 12.2 sec (9.37-12.3)
[2018-03-16] MEDS ORDERED: MIDAZOLAM DRIP 50 mg/50mL 50 ML IV SCH (16:28)
[2018-03-16 16:33] LABS: Albumin 3.2 g/dL (3.4-5.0); Bilirubin, Total 0.4 mg/dL (0.2-1.0); Calcium 9.1 mg/dL (8.5-10.1); Magnesium 2.5 mg/dL (1.6-2.6); Potassium 3.8 mmol/L (3.5-5.1)
[2018-03-16] MEDS ORDERED: NOREPINEPHRINE 8 MG/250ML KIT 250 ML IV SCH (17:24)
[2018-03-16] MEDS: PROPOFOL 100 ML IV SCH (18:05)
[2018-03-16] MEDS ORDERED: cefTRIAXone 1GM/10ml IVPUSH 10 ML IV ONE (18:15)
[2018-03-16] MEDS ORDERED: DEXTROSE (50%) 50ML SYRG IV PRN (18:15)
[2018-03-16] MEDS ORDERED: VANCOMYCIN PER PHARMACY 0 MG IV SCH (18:15)
[2018-03-16] MEDS: MIDAZOLAM DRIP 50 mg/50mL 50 ML IV SCH ×2 (18:25→23:25)
[2018-03-16] MEDS: NOREPINEPHRINE 8 MG/250ML KIT 250 ML IV SCH (18:25)
[2018-03-16] MEDS: SODIUM CHLORIDE 0.9% 1,000 ML IV SCH (18:29)
[2018-03-16] MEDS ORDERED: MORPHINE SULFATE 4 MG/ML SYR/VIAL IV PRN (18:30)
[2018-03-16] MEDS ORDERED: ONDANSETRON HCL 4 MG/2 ML VIAL IV PRN (18:30)
[2018-03-16] MEDS ORDERED: NITROGLYCERIN 0.4 MG SL TAB SL PRN (18:30)
[2018-03-16] MEDS ORDERED: SODIUM CHLORIDE 0.9% 2,000 ML IV ONE (18:45)
[2018-03-16] MEDS ORDERED: FAMOTIDINE (10MG/ML) 2ML VL IV ONE (18:45)
[2018-03-16] MEDS ORDERED: LORazepam 2MG/ML-1ML VIAL IV PRN (18:45)
[2018-03-16] MEDS ORDERED: PANTOPRAZOLE 40 MG/10 ML VIAL IV ONE (18:50)
[2018-03-16 19:15] LABS: Lactic Acid w/Reflex 4.3 mmol/L (0.4-2.0)
[2018-03-16 19:35] LABS: Urine Amorphous Crystal MOD /hpf (None Seen); Urine Bacteria FEW /hpf (None Seen); Urine Blood 2+ /uL (Negative); Urine Mucus FEW (None Seen); Urine Specific Gravity 1.022 (1.001-1.035); Urine WBC 5 /hpf (0 - 5)
[2018-03-16] MEDS: LEVETIRACETAM INJ 1,000 MG in D5W 5% 100 ML IV SCH (22:00)
[2018-03-16] MEDS: IPRATROPIUM BROM 0.5 MG/2.5ML INH SOL NEB SCH (22:08)
[2018-03-16] MEDS: ALBUTEROL SULF 2.5 MG/0.5ML(0.5%) NEB SOLN NEB SCH (22:09)
[2018-03-16 23:23] LABS: Lactic Acid w/Reflex 2.7 mmol/L (0.4-2.0)
[2018-03-17] VITALS (101 sets, daily range): BP systolic 68–168; BP diastolic 43–89
[2018-03-17] MEDS: IPRATROPIUM BROM 0.5 MG/2.5ML INH SOL NEB SCH ×6 (02:11→22:20)
[2018-03-17] MEDS: ALBUTEROL SULF 2.5 MG/0.5ML(0.5%) NEB SOLN NEB SCH ×6 (02:11→22:21)
[2018-03-17] MEDS: SODIUM CHLORIDE 0.9% 1,000 ML IV SCH (03:17)
[2018-03-17 04:40] LABS: Basophils # (auto) 0 uL; Basophils % (auto) 0.3 % (0.0-2.0); Eosinophils # (auto) 0 uL; Hemoglobin 14.6 g/dL (12.2-16.2); Lymphocytes # (auto) 0.7 uL; Lymphocytes % (auto) 4.3 % (10.0-50.0); Mean Corpuscular Hemoglobin 29.1 pg (28.0-32.0); Mean Corpuscular Hgb Conc. 32.4 g/dL (32.0-36.0); Mean Corpuscular Volume 89.9 fL (80.0-100.0); Monocytes # (auto) 1.2 uL; Monocytes % (auto) 7.2 % (0.0-12.0); Neutrophils # (auto) 14.2 uL; Neutrophils % (auto) 88.2 % (37.0-80.0); Platelet Count (auto) 320 10^3/uL (140-450); Red Blood Cells 5.01 10^6/uL (4.0-5.20); Red Cell Distribution Width 16.8 % (11.8-14.3); White Blood Cell 16.1 10^3/uL (4.4-10.8)
[2018-03-17 05:06] LABS: Albumin 2.7 g/dL (3.4-5.0); BUN/Creatinine Ratio 12.7; Bilirubin, Total 0.3 mg/dL (0.2-1.0); Calcium 7.8 mg/dL (8.5-10.1); Potassium 3.4 mmol/L (3.5-5.1); Total Protein 6.7 g/dL (6.4-8.2)
[2018-03-17] MEDS: ACCU-CHEK COMFORT CURVE STRIP VI SCH ×4 (05:53→17:59)
[2018-03-17] MEDS: InsuLIN REG 1unit/0.01ml Soln (100units/ml) SC SCH ×4 (05:53→18:34)
[2018-03-17] MEDS: cefTRIAXone 1GM/10ml IVPUSH 10 ML IV SCH (09:14)
[2018-03-17] MEDS: MIDAZOLAM DRIP 50 mg/50mL 50 ML IV SCH ×2 (09:15→15:07)
[2018-03-17] MEDS: PROPOFOL 100 ML IV SCH (09:16)
[2018-03-17] MEDS ORDERED: FAMOTIDINE (10MG/ML) 2ML VL IV SCH (10:00)
[2018-03-17] MEDS: PANTOPRAZOLE 40 MG/10 ML VIAL IV SCH (10:14)
[2018-03-17] MEDS: LEVETIRACETAM INJ 1,000 MG in D5W 5% 100 ML IV SCH ×2 (11:07→21:55)
[2018-03-17] MEDS: methylPREDNISolone SOD SUCC 40 MG/ML VL IV SCH ×2 (13:05→18:02)
[2018-03-17] MEDS: BUMETANIDE (0.25MG/ML) 4 ML VIAL IV SCH (17:58)
[2018-03-17] MEDS: NOREPINEPHRINE 8 MG/250ML KIT 250 ML IV SCH (18:15)
[2018-03-17] MEDS ORDERED: LEVO50TA7 PO (18:55)
[2018-03-17] MEDS: VANCOMYCIN 1GM/250ML 250 ML IV SCH (20:16)
[2018-03-17] MEDS: busPIRone HCL 10 MG TAB PO SCH (20:17)
[2018-03-17] MEDS: POTASSIUM CHL 10% (20 MEQ/15ML) 15ml ORAL SOLN GT SCH (20:17)
[2018-03-17] MEDS: OLANZapine 5 MG TAB PO SCH (20:18)
[2018-03-17] MEDS: CARBIDOPA W LEVODOPA CR 25/100mg TABLET PO SCH (20:18)
[2018-03-18] VITALS (72 sets, daily range): BP systolic 110–199; BP diastolic 50–111
[2018-03-18] MEDS: ACCU-CHEK COMFORT CURVE STRIP VI SCH ×4 (00:15→18:00)
[2018-03-18] MEDS: methylPREDNISolone SOD SUCC 40 MG/ML VL IV SCH ×4 (00:15→18:00)
[2018-03-18] MEDS: ALBUTEROL SULF 2.5 MG/0.5ML(0.5%) NEB SOLN NEB SCH ×6 (02:11→22:27)
[2018-03-18] MEDS: IPRATROPIUM BROM 0.5 MG/2.5ML INH SOL NEB SCH ×6 (02:11→22:27)
[2018-03-18 03:49] LABS: Basophils # (auto) 0 uL; Basophils % (auto) 0.4 % (0.0-2.0); Eosinophils # (auto) 0 uL; Hematocrit 38.6 % (36.0-46.0); Lymphocytes # (auto) 0.5 uL; Lymphocytes % (auto) 3.6 % (10.0-50.0); Mean Corpuscular Hemoglobin 29.3 pg (28.0-32.0); Mean Corpuscular Hgb Conc. 33.6 g/dL (32.0-36.0); Mean Corpuscular Volume 87.4 fL (80.0-100.0); Monocytes # (auto) 0.5 uL; Monocytes % (auto) 3.7 % (0.0-12.0); Neutrophils # (auto) 12.3 uL; Neutrophils % (auto) 92.3 % (37.0-80.0); Platelet Count (auto) 303 10^3/uL (140-450); Red Blood Cells 4.42 10^6/uL (4.0-5.20); Red Cell Distribution Width 16.7 % (11.8-14.3); White Blood Cell 13.3 10^3/uL (4.4-10.8)
[2018-03-18 04:02] LABS: Calcium 7.9 mg/dL (8.5-10.1); Potassium 3.8 mmol/L (3.5-5.1)
[2018-03-18 04:03] LABS: BUN/Creatinine Ratio 18.9
[2018-03-18] MEDS: InsuLIN REG 1unit/0.01ml Soln (100units/ml) SC SCH ×4 (06:00→18:00)
[2018-03-18] MEDS: BUMETANIDE (0.25MG/ML) 4 ML VIAL IV SCH (06:15)
[2018-03-18] MEDS: CARBIDOPA W LEVODOPA CR 25/100mg TABLET PO SCH ×4 (06:16→20:25)
[2018-03-18] MEDS: MIDAZOLAM DRIP 50 mg/50mL 50 ML IV SCH (06:37)
[2018-03-18] MEDS: PROPOFOL 100 ML IV SCH (06:37)
[2018-03-18] MEDS ORDERED: LEVOTHYROXINE SODIUM 50 MCG TAB PO SCH (07:00)
[2018-03-18] MEDS: amLODIPine BESYLATE 5 MG TAB PO SCH (07:29)
[2018-03-18] MEDS: cefTRIAXone 1GM/10ml IVPUSH 10 ML IV SCH (09:56)
[2018-03-18] MEDS ORDERED: amLODIPine BESYLATE 5 MG TAB PO SCH (10:00)
[2018-03-18] MEDS: POTASSIUM CHL 10% (20 MEQ/15ML) 15ml ORAL SOLN GT SCH (10:06)
[2018-03-18] MEDS: LEVETIRACETAM INJ 1,000 MG in D5W 5% 100 ML IV SCH (10:06)
[2018-03-18] MEDS: PANTOPRAZOLE 40 MG/10 ML VIAL IV SCH (10:09)
[2018-03-18] MEDS: busPIRone HCL 10 MG TAB PO SCH ×2 (10:09→20:23)
[2018-03-18] MEDS: OLANZapine 5 MG TAB PO SCH ×2 (10:15→20:25)
[2018-03-18] MEDS: NOREPINEPHRINE 8 MG/250ML KIT 250 ML IV SCH (18:15)
[2018-03-18] MEDS: LEVETIRACETAM 500 MG TAB PO SCH (20:23)
[2018-03-18] MEDS: MIRTAZAPINE 30 MG TAB PO SCH (20:24)
[2018-03-18] MEDS: DOXYCYCLINE 100 MG TAB/CAP PO SCH (20:25)
[2018-03-18] MEDS: MORPHINE SULFATE 4 MG/ML SYR/VIAL IV PRN (20:26)
[2018-03-19] VITALS (16 sets, daily range): BP systolic 133–196; BP diastolic 49–87
[2018-03-19] MEDS: methylPREDNISolone SOD SUCC 40 MG/ML VL IV SCH ×2 (00:23→05:31)
[2018-03-19] MEDS: ACCU-CHEK COMFORT CURVE STRIP VI SCH ×5 (00:24→23:46)
[2018-03-19] MEDS: IPRATROPIUM BROM 0.5 MG/2.5ML INH SOL NEB SCH ×6 (02:28→22:06)
[2018-03-19] MEDS: ALBUTEROL SULF 2.5 MG/0.5ML(0.5%) NEB SOLN NEB SCH ×6 (02:28→22:06)
[2018-03-19] MEDS: MORPHINE SULFATE 4 MG/ML SYR/VIAL IV PRN ×2 (03:18→21:42)
[2018-03-19 03:45] LABS: Albumin 2.7 g/dL (3.4-5.0); Calcium 8.6 mg/dL (8.5-10.1); Potassium 3.7 mmol/L (3.5-5.1)
[2018-03-19 03:48] LABS: BUN/Creatinine Ratio 21.5
[2018-03-19 03:50] LABS: Bilirubin, Total 0.5 mg/dL (0.2-1.0)
[2018-03-19] MEDS: CARBIDOPA W LEVODOPA CR 25/100mg TABLET PO SCH ×4 (05:31→21:30)
[2018-03-19] MEDS: InsuLIN REG 1unit/0.01ml Soln (100units/ml) SC SCH ×5 (05:31→23:45)
[2018-03-19] MEDS: LEVOTHYROXINE SODIUM 50 MCG TAB PO SCH (05:32)
[2018-03-19] MEDS: busPIRone HCL 10 MG TAB PO SCH ×2 (10:00→21:30)
[2018-03-19] MEDS: FLORASTOR (S. BOULARDII) 250 MG CAP PO SCH (10:00)
[2018-03-19] MEDS: DOXYCYCLINE 100 MG TAB/CAP PO SCH ×2 (10:01→21:29)
[2018-03-19] MEDS: FAMOTIDINE 20 MG TAB PO SCH (10:01)
[2018-03-19] MEDS: OLANZapine 5 MG TAB PO SCH ×2 (10:01→21:29)
[2018-03-19] MEDS: LEVETIRACETAM 500 MG TAB PO SCH ×2 (10:01→21:31)
[2018-03-19] MEDS: amLODIPine BESYLATE 5 MG TAB PO SCH (10:03)
[2018-03-19] MEDS ORDERED: hydrALAZINE HCL 20 MG/ML VL IV PRN (10:45)
[2018-03-19] MEDS ORDERED: prednisoLONE 15 MG/5 ML ORAL UD PO ONE (10:45)
[2018-03-19 10:58] LABS: Basophils # (auto) 0 uL; Basophils % (auto) 0.2 % (0.0-2.0); Eosinophils # (auto) 0 uL; Eosinophils % (auto) 0.1 % (0.0-7.0); Hematocrit 39.4 % (36.0-46.0); Hemoglobin 12.7 g/dL (12.2-16.2); Lymphocytes # (auto) 0.5 uL; Lymphocytes % (auto) 3.9 % (10.0-50.0); Mean Corpuscular Hgb Conc. 32.3 g/dL (32.0-36.0); Mean Corpuscular Volume 89.9 fL (80.0-100.0); Monocytes # (auto) 0.5 uL; Monocytes % (auto) 3.6 % (0.0-12.0); Neutrophils # (auto) 11.8 uL; Neutrophils % (auto) 92.2 % (37.0-80.0); Platelet Count (auto) 283 10^3/uL (140-450); Red Blood Cells 4.38 10^6/uL (4.0-5.20); Red Cell Distribution Width 17.2 % (11.8-14.3); White Blood Cell 12.8 10^3/uL (4.4-10.8)
[2018-03-19] MEDS ORDERED: predniSONE 20 MG TAB PO ONE (11:00)
[2018-03-19] MEDS: ALPRAZolam 0.25 MG TAB PO SCH (21:29)
[2018-03-19] MEDS: MIRTAZAPINE 30 MG TAB PO SCH (21:31)
[2018-03-20 00:58] VITALS: BP 149/64
[2018-03-20] MEDS: ALBUTEROL SULF 2.5 MG/0.5ML(0.5%) NEB SOLN NEB SCH ×4 (02:28→14:11)
[2018-03-20] MEDS: IPRATROPIUM BROM 0.5 MG/2.5ML INH SOL NEB SCH ×4 (02:28→14:10)
[2018-03-20 04:50] VITALS: BP 157/71
[2018-03-20 05:57] LABS: Basophils # (auto) 0 uL; Basophils % (auto) 0.4 % (0.0-2.0); Eosinophils # (auto) 0 uL; Eosinophils % (auto) 0.1 % (0.0-7.0); Hemoglobin 12.2 g/dL (12.2-16.2); Lymphocytes # (auto) 1.8 uL; Mean Corpuscular Hemoglobin 29.6 pg (28.0-32.0); Mean Corpuscular Hgb Conc. 33.9 g/dL (32.0-36.0); Mean Corpuscular Volume 87.5 fL (80.0-100.0); Monocytes # (auto) 0.9 uL; Monocytes % (auto) 10.2 % (0.0-12.0); Neutrophils # (auto) 6.5 uL; Neutrophils % (auto) 70.3 % (37.0-80.0); Nucleated Red Blood Cells % 0.1 %; Platelet Count (auto) 285 10^3/uL (140-450); Red Blood Cells 4.12 10^6/uL (4.0-5.20); Red Cell Distribution Width 16.9 % (11.8-14.3); White Blood Cell 9.3 10^3/uL (4.4-10.8)
[2018-03-20] MEDS: InsuLIN REG 1unit/0.01ml Soln (100units/ml) SC SCH ×2 (06:00→12:00)
[2018-03-20 06:14] LABS: BUN/Creatinine Ratio 21.8; Calcium 8.4 mg/dL (8.5-10.1); Potassium 3.4 mmol/L (3.5-5.1)
[2018-03-20] MEDS: ACCU-CHEK COMFORT CURVE STRIP VI SCH ×2 (06:38→12:00)
[2018-03-20] MEDS: CARBIDOPA W LEVODOPA CR 25/100mg TABLET PO SCH ×2 (06:43→13:09)
[2018-03-20] MEDS: LEVOTHYROXINE SODIUM 50 MCG TAB PO SCH (06:43)
[2018-03-20] MEDS: MORPHINE SULFATE 4 MG/ML SYR/VIAL IV PRN (07:40)
[2018-03-20] MEDS ORDERED: POTASSIUM CHL 20 Meq TABLET PO ONE (08:30)
[2018-03-20 08:48] VITALS: BP 163/68
[2018-03-20] MEDS: FAMOTIDINE 20 MG TAB PO SCH (09:34)
[2018-03-20] MEDS: OLANZapine 5 MG TAB PO SCH (09:34)
[2018-03-20] MEDS: FLORASTOR (S. BOULARDII) 250 MG CAP PO SCH (09:34)
[2018-03-20] MEDS: DOXYCYCLINE 100 MG TAB/CAP PO SCH (09:35)
[2018-03-20] MEDS: ALPRAZolam 0.25 MG TAB PO SCH (09:35)
[2018-03-20] MEDS: LEVETIRACETAM 500 MG TAB PO SCH (09:35)
[2018-03-20] MEDS: busPIRone HCL 10 MG TAB PO SCH (09:35)
[2018-03-20] MEDS: amLODIPine BESYLATE 5 MG TAB PO SCH (09:36)
[2018-03-20] MEDS ORDERED: prednisoLONE 15 MG/5 ML ORAL UD PO SCH (10:00)
[2018-03-20] MEDS ORDERED: METH4PAK PO (11:12)
[2018-03-20] MEDS ORDERED: DOXY1CAP82 PO (11:12)
[2018-03-20] MEDS ORDERED: ALBUAER3 IN (11:12)
[2018-03-20 12:58] VITALS: BP 152/72
[2018-03-20 13:22] VITALS: BP 152/72
[2018-03-20 15:15] VITALS: BP 152/72
== END 2018-03-20 15:15 | disposition home health service (06) | DRG 871 ==
LOC: EDUNIT# 15:42 → EDBD 15:42 → ER 15:42 → TELE 15:43 → ICU WEST 19:50 → TELE-EAST 03-19 15:20
PROVIDERS: ADMIT Internal Medicine; ATTEND Hospitalist
PROC: 5A1945Z Respiratory Ventilation, 24-96 Consecutive Hours (ICD-10-PCS; principal; 2018-03-16)
PROC: 0BH17EZ Insertion of Endotracheal Airway into Trachea, Via Natural or Artificial Opening (ICD-10-PCS; 2018-03-16)
DX: A41.9 Sepsis, unspecified organism (principal); J96.01 Acute respiratory failure with hypoxia; E44.0 Moderate protein-calorie malnutrition; J44.0 Chronic obstructive pulmonary disease with (acute) lower respiratory infection; I13.0 Hypertensive heart and chronic kidney disease with heart failure and stage 1 through stage 4 chronic kidney disease, or unspecified chronic kidney disease; E87.1 Hypo-osmolality and hyponatremia; J44.1 Chronic obstructive pulmonary disease with (acute) exacerbation; I50.42 Chronic combined systolic (congestive) and diastolic (congestive) heart failure; E11.22 Type 2 diabetes mellitus with diabetic chronic kidney disease; E11.65 Type 2 diabetes mellitus with hyperglycemia; G20 Parkinson's disease; N18.3 Chronic kidney disease, stage 3 (moderate); J20.9 Acute bronchitis, unspecified; E03.9 Hypothyroidism, unspecified; F03.90 Unspecified dementia, unspecified severity, without behavioral disturbance, psychotic disturbance, mood disturbance, and anxiety; F17.210 Nicotine dependence, cigarettes, uncomplicated; F32.9 Major depressive disorder, single episode, unspecified; F41.9 Anxiety disorder, unspecified; G40.909 Epilepsy, unspecified, not intractable, without status epilepticus; S40.022A Contusion of left upper arm, initial encounter; X58.XXXA Exposure to other specified factors, initial encounter; Y93.89 Activity, other specified; Y92.89 Other specified places as the place of occurrence of the external cause; Z82.3 Family history of stroke; Z83.3 Family history of diabetes mellitus; Z86.73 Personal history of transient ischemic attack (TIA), and cerebral infarction without residual deficits; Z90.710 Acquired absence of both cervix and uterus; Z79.899 Other long term (current) drug therapy; Z88.1 Allergy status to other antibiotic agents; Z88.0 Allergy status to penicillin; Z88.2 Allergy status to sulfonamides; Z68.29 Body mass index [BMI] 29.0-29.9, adult
CPT/HCPCS: 31500; 36415; 36600; 51702; 71045; 71250; 80048; 80053; 80202; 81001; 82805; 82962; 83036; 83605; 83735; 83880; 84484; 85025; 85610; 85730; 87040; 87070; 87077; 87081; 87086; 87186; 87205; 87493; 93005; 93306; 94002; 94003; 94640; 94761; 96361; 96365; 96375; C9113; J0330; J1815; J2250; J2704; J3490; J7060; J7510

== ENCOUNTER 2018-04-28 11:15 | Emergency (ER) | payer OTHER, MEDICAID ==
[~2018-04-28] VITALS: Ht 162.6 cm; Wt 65.8 kg
[~2018-04-28 11:15] MED LIST changes: +ALBUAER3 IN; -AMLO5TAB2 PO; +DOXY1CAP82 PO; -LEVO25TA6 PO; +LEVO50TA7 PO; +METH4PAK PO
[2018-04-28 12:29] LABS: Basophils # (auto) 0.2 uL; Basophils % (auto) 2.6 % (0.0-2.0); Eosinophils # (auto) 0.1 uL; Eosinophils % (auto) 1.2 % (0.0-7.0); Hemoglobin 11.9 g/dL (12.2-16.2); Lymphocytes % (auto) 27.1 % (10.0-50.0); Mean Corpuscular Hemoglobin 29.3 pg (28.0-32.0); Mean Corpuscular Hgb Conc. 33.1 g/dL (32.0-36.0); Mean Corpuscular Volume 88.5 fL (80.0-100.0); Monocytes # (auto) 0.7 uL; Monocytes % (auto) 9.9 % (0.0-12.0); Neutrophils # (auto) 4.4 uL; Neutrophils % (auto) 59.2 % (37.0-80.0); Platelet Count (auto) 314 10^3/uL (140-450); Red Blood Cells 4.07 10^6/uL (4.0-5.20); White Blood Cell 7.4 10^3/uL (4.4-10.8)
[2018-04-28 13:06] LABS: Alanine Aminotransferase < 6 U/L (13-56); Albumin 2.2 g/dL (3.4-5.0); Alkaline Phosphatase 72 U/L (45-117); Anion Gap 8 (5-15); Aspartate Aminotransferase 8 U/L (15-37); BUN/Creatinine Ratio 17.6; Bilirubin, Total 0.2 mg/dL (0.2-1.0); Blood Urea Nitrogen 12 mg/dL (7-18); Calcium 7.8 mg/dL (8.5-10.1); Carbon Dioxide 24 mmol/L (21-32); Chloride 107 mmol/L (98-107); GFR African American 110 mL/min; GFR Non-African American 91 mL/min; Glucose 82 mg/dL (74-106); Magnesium 2.1 mg/dL (1.6-2.6); Sodium 139 mmol/L (136-145); Total Protein 5.8 g/dL (6.4-8.2)
[2018-04-28 14:08] VITALS: BP 144/72
[2018-04-28 14:24] LABS: Urine Bacteria NONE SEEN /hpf (None Seen); Urine Blood Negative /uL (Negative); Urine Specific Gravity 1.007 (1.001-1.035); Urine WBC 18 /hpf (0 - 5)
[2018-04-28] MEDS ORDERED: cefTRIAXone 1GM/10ml IVPUSH 10 ML IV ONE ×2 (16:00→16:01)
== END 2018-04-28 17:28 | disposition home or self-care (01) ==
LOC: EDBD 11:15 → ER 11:15
DX: G20 Parkinson's disease (principal); G40.909 Epilepsy, unspecified, not intractable, without status epilepticus; F17.210 Nicotine dependence, cigarettes, uncomplicated; J44.9 Chronic obstructive pulmonary disease, unspecified; I50.9 Heart failure, unspecified; Z86.73 Personal history of transient ischemic attack (TIA), and cerebral infarction without residual deficits
CPT/HCPCS: 36415; 71045; 80053; 81001; 83735; 84443; 84484; 85025; 93005; 94761; 96374

== ENCOUNTER 2018-08-04 08:24 | Inpatient (IN) | payer OTHER, MEDICAID ==
[~2018-08-04] VITALS: Ht 162.6 cm; Wt 63.5 kg
[~2018-08-04 08:24] MED LIST changes: +DOXY-338 PO; -DOXY1CAP82 PO
[2018-08-04 09:15] LABS: Basophils # (auto) 0.1 uL; Basophils % (auto) 1.5 % (0.0-2.0); Eosinophils # (auto) 0.2 uL; Eosinophils % (auto) 2.7 % (0.0-7.0); Hematocrit 41.2 % (36.0-46.0); Hemoglobin 13.4 g/dL (12.2-16.2); Lymphocytes # (auto) 1.6 uL; Lymphocytes % (auto) 22.1 % (10.0-50.0); Mean Corpuscular Hemoglobin 29.1 pg (28.0-32.0); Mean Corpuscular Hgb Conc. 32.6 g/dL (32.0-36.0); Mean Corpuscular Volume 89.3 fL (80.0-100.0); Monocytes % (auto) 13.1 % (0.0-12.0); Neutrophils # (auto) 4.5 uL; Neutrophils % (auto) 60.6 % (37.0-80.0); Nucleated Red Blood Cells % 0.2 %; Platelet Count (auto) 264 10^3/uL (140-450); Red Blood Cells 4.61 10^6/uL (4.0-5.20); Red Cell Distribution Width 15.6 % (11.8-14.3); White Blood Cell 7.4 10^3/uL (4.4-10.8)
[2018-08-04 09:31] LABS: Alanine Aminotransferase 8 U/L (13-56); Albumin 2.9 g/dL (3.4-5.0); Anion Gap 7 (5-15); Aspartate Aminotransferase 11 U/L (15-37); BUN/Creatinine Ratio 8.8; Blood Urea Nitrogen 6 mg/dL (7-18); Calcium 8.1 mg/dL (8.5-10.1); Carbon Dioxide 27 mmol/L (21-32); Chloride 105 mmol/L (98-107); GFR African American 110 mL/min; GFR Non-African American 91 mL/min; Glucose 77 mg/dL (74-106); Magnesium 1.9 mg/dL (1.6-2.6); Potassium 4.1 mmol/L (3.5-5.1); Sodium 139 mmol/L (136-145)
[2018-08-04 09:36] LABS: Alkaline Phosphatase 89 U/L (45-117); Bilirubin, Total 0.5 mg/dL (0.2-1.0); Total Protein 7.4 g/dL (6.4-8.2)
[2018-08-04] MEDS ORDERED: LABETALOL HCL 5 MG/ML ML 20ML VIAL IV ONE (10:15)
[2018-08-04 10:55] LABS: Urine Bacteria FEW /hpf (None Seen); Urine Blood Negative /uL (Negative); Urine Specific Gravity 1.005 (1.001-1.035); Urine WBC 3 /hpf (0 - 5)
[2018-08-04] MEDS ORDERED: hydrALAZINE HCL 20 MG/ML VL IV ONE (15:00)
[2018-08-04] MEDS ORDERED: cloNIDine HCL 0.1 MG TAB PO PRN (16:30)
[2018-08-04] MEDS ORDERED: LABETALOL HCL 5 MG/ML ML 20ML VIAL IV PRN (16:30)
[2018-08-04] MEDS ORDERED: LORazepam 2MG/ML-1ML VIAL IV PRN (16:30)
[2018-08-04] MEDS ORDERED: cefTRIAXone 1GM/10ml IVPUSH 10 ML IV ONE (16:30)
[2018-08-04] MEDS ORDERED: ALUM & MAG HYDROX-SIMETH LIQ(MAALOX) 30 ML PO ONE (16:45)
[2018-08-04] MEDS ORDERED: LORazepam 0.5 MG TAB PO PRN (16:45)
[2018-08-04] MEDS ORDERED: ZOLPIDEM TARTRATE 5 MG TAB PO PRN (16:45)
[2018-08-04] MEDS ORDERED: MORPHINE SULFATE 4 MG/ML SYR/VIAL IV PRN ×2 (16:45)
[2018-08-04] MEDS ORDERED: ACETAMINOPHEN 325 MG TAB PO PRN (16:45)
[2018-08-04] MEDS ORDERED: NITROGLYCERIN 0.4 MG SL TAB SL PRN ×2 (16:45)
[2018-08-04] MEDS: ALBUTEROL SULF 2.5 MG/0.5ML(0.5%) NEB SOLN NEB SCH (17:30)
[2018-08-04] MEDS: IPRATROPIUM BROM 0.5 MG/2.5ML INH SOL NEB SCH (17:30)
[2018-08-04] MEDS: CARBIDOPA W LEVODOPA 25/100mg TABLET PO SCH ×2 (18:00→21:14)
[2018-08-04 19:07] VITALS: BP 150/71
[2018-08-04 19:12] VITALS: BP 150/55
[2018-08-04] MEDS: SODIUM CHLOR 0.9% PF (SALINE LOCK) 10ML VIAL/SYR IV SCH (21:12)
[2018-08-04] MEDS: LEVETIRACETAM 500 MG TAB PO SCH (21:13)
[2018-08-04] MEDS: busPIRone HCL 10 MG TAB PO SCH (21:13)
[2018-08-04] MEDS: LISINOPRIL 20 MG TAB PO SCH (21:14)
[2018-08-04] MEDS: OLANZapine 5 MG TAB PO SCH (21:14)
[2018-08-04] MEDS: ASPIRIN-DIPYRIDAMOLE (25/200MG) CAPSULE PO SCH (21:16)
[2018-08-04] MEDS: CARVEDILOL 3.125 MG TAB PO SCH (21:18)
[2018-08-04 21:39] LABS: INR 0.94 (0.9-1.15); Prothrombin Time 10.1 sec (9.27-12.13)
[2018-08-04] MEDS ORDERED: ATORVASTATIN 20 MG TAB PO SCH (22:00)
[2018-08-04] MEDS ORDERED: MIRTAZAPINE 30 MG TAB PO SCH (22:00)
[2018-08-04 22:14] VITALS: BP 152/72
[2018-08-05] MEDS: ONDANSETRON HCL 4 MG/2 ML VIAL IV PRN ×2 (00:32→11:24)
[2018-08-05] MEDS: HYDROcodone-ACET 5/325MG TAB PO PRN ×2 (00:33→11:23)
[2018-08-05] MEDS: IPRATROPIUM BROM 0.5 MG/2.5ML INH SOL NEB SCH ×3 (00:51→12:12)
[2018-08-05] MEDS: ALBUTEROL SULF 2.5 MG/0.5ML(0.5%) NEB SOLN NEB SCH ×3 (00:51→12:12)
[2018-08-05 04:45] VITALS: BP 137/71
[2018-08-05 05:35] LABS: Basophils # (auto) 0.1 uL; Basophils % (auto) 1.3 % (0.0-2.0); Eosinophils # (auto) 0.2 uL; Eosinophils % (auto) 2.3 % (0.0-7.0); Hematocrit 41.8 % (36.0-46.0); Hemoglobin 14.1 g/dL (12.2-16.2); Mean Corpuscular Hemoglobin 29.8 pg (28.0-32.0); Mean Corpuscular Hgb Conc. 33.7 g/dL (32.0-36.0); Mean Corpuscular Volume 88.3 fL (80.0-100.0); Monocytes # (auto) 0.9 uL; Monocytes % (auto) 12.1 % (0.0-12.0); Neutrophils # (auto) 4.5 uL; Neutrophils % (auto) 58.3 % (37.0-80.0); Nucleated Red Blood Cells % 0.1 %; Platelet Count (auto) 276 10^3/uL (140-450); Red Blood Cells 4.73 10^6/uL (4.0-5.20); Red Cell Distribution Width 15.6 % (11.8-14.3); White Blood Cell 7.8 10^3/uL (4.4-10.8)
[2018-08-05] MEDS: CARBIDOPA W LEVODOPA 25/100mg TABLET PO SCH ×2 (05:47→13:32)
[2018-08-05] MEDS: SODIUM CHLOR 0.9% PF (SALINE LOCK) 10ML VIAL/SYR IV SCH ×2 (05:47→14:42)
[2018-08-05 06:05] LABS: Alanine Aminotransferase 8 U/L (13-56); Albumin 3.2 g/dL (3.4-5.0); Alkaline Phosphatase 94 U/L (45-117); Anion Gap 4 (5-15); Aspartate Aminotransferase 12 U/L (15-37); BUN/Creatinine Ratio 15.1; Bilirubin, Total 0.5 mg/dL (0.2-1.0); Blood Urea Nitrogen 11 mg/dL (7-18); Calcium 8.7 mg/dL (8.5-10.1); Carbon Dioxide 28 mmol/L (21-32); Chloride 105 mmol/L (98-107); Cholesterol 180 mg/dL (< 200); GFR African American 101 mL/min; GFR Non-African American 84 mL/min; Glucose 82 mg/dL (74-106); HDL Cholesterol 43 mg/dL (40-59); LDL Cholesterol 132 mg/dL (< 100); Magnesium 2.1 mg/dL (1.6-2.6); Potassium 3.9 mmol/L (3.5-5.1); Sodium 137 mmol/L (136-145); Total Protein 7.9 g/dL (6.4-8.2); Triglycerides 120 mg/dL (< 150)
[2018-08-05] MEDS ORDERED: LEVOTHYROXINE SODIUM 50 MCG TAB PO SCH (07:00)
[2018-08-05 08:29] VITALS: BP 140/66
[2018-08-05] MEDS ORDERED: cefTRIAXone 1GM/10ml IVPUSH 10 ML IV SCH (09:00)
[2018-08-05] MEDS ORDERED: ASPirin 81 mg TAB PO SCH (10:00)
[2018-08-05] MEDS ORDERED: CLOPIDOGREL BISULFATE 75 MG TAB PO SCH (10:00)
[2018-08-05] MEDS ORDERED: DOCUSATE SOD 100 MG CAP PO SCH (10:00)
[2018-08-05] MEDS: busPIRone HCL 10 MG TAB PO SCH (10:11)
[2018-08-05] MEDS: LEVETIRACETAM 500 MG TAB PO SCH (10:11)
[2018-08-05] MEDS: LISINOPRIL 20 MG TAB PO SCH (10:12)
[2018-08-05] MEDS: CARVEDILOL 3.125 MG TAB PO SCH (10:12)
[2018-08-05] MEDS: OLANZapine 5 MG TAB PO SCH (10:13)
[2018-08-05] MEDS: ASPIRIN-DIPYRIDAMOLE (25/200MG) CAPSULE PO SCH (11:23)
[2018-08-05 11:53] VITALS: BP 161/71
[2018-08-05 15:30] VITALS: BP 161/71
[2018-08-05 16:39] VITALS: BP 187/79
== END 2018-08-05 16:43 | disposition home or self-care (01) | DRG 313 ==
LOC: EDBD 08:24 → ER 08:25 → TELE 08:26 → TELE-WESTW 19:28
PROVIDERS: ADMIT Internal Medicine; ATTEND Internal Medicine
DX: R07.9 Chest pain, unspecified (principal); E44.0 Moderate protein-calorie malnutrition; N39.0 Urinary tract infection, site not specified; I25.10 Atherosclerotic heart disease of native coronary artery without angina pectoris; E03.9 Hypothyroidism, unspecified; E83.51 Hypocalcemia; J44.9 Chronic obstructive pulmonary disease, unspecified; F03.90 Unspecified dementia, unspecified severity, without behavioral disturbance, psychotic disturbance, mood disturbance, and anxiety; F17.210 Nicotine dependence, cigarettes, uncomplicated; F41.9 Anxiety disorder, unspecified; G20 Parkinson's disease; G40.909 Epilepsy, unspecified, not intractable, without status epilepticus; I11.0 Hypertensive heart disease with heart failure; I50.9 Heart failure, unspecified; Z80.0 Family history of malignant neoplasm of digestive organs; Z80.1 Family history of malignant neoplasm of trachea, bronchus and lung; Z80.3 Family history of malignant neoplasm of breast; Z80.41 Family history of malignant neoplasm of ovary; Z80.8 Family history of malignant neoplasm of other organs or systems; Z81.8 Family history of other mental and behavioral disorders; Z82.0 Family history of epilepsy and other diseases of the nervous system; Z82.49 Family history of ischemic heart disease and other diseases of the circulatory system; Z82.5 Family history of asthma and other chronic lower respiratory diseases; Z83.3 Family history of diabetes mellitus; Z86.73 Personal history of transient ischemic attack (TIA), and cerebral infarction without residual deficits; Z82.62 Family history of osteoporosis; Z90.710 Acquired absence of both cervix and uterus; Z82.3 Family history of stroke; Z88.1 Allergy status to other antibiotic agents; Z88.2 Allergy status to sulfonamides; Z88.0 Allergy status to penicillin; Z88.8 Allergy status to other drugs, medicaments and biological substances; Z79.01 Long term (current) use of anticoagulants; Z79.899 Other long term (current) drug therapy; Z79.82 Long term (current) use of aspirin; Z81.1 Family history of alcohol abuse and dependence; Z82.61 Family history of arthritis; Z83.42 Family history of familial hypercholesterolemia; Z87.81 Personal history of (healed) traumatic fracture; Z68.24 Body mass index [BMI] 24.0-24.9, adult
CPT/HCPCS: 36415; 71046; 80053; 80061; 81001; 83735; 84443; 84484; 85025; 85610; 87086; 93005; 94640; 94761; 96374; 96375; 96376; J0696; J2405

== ENCOUNTER 2018-09-10 12:57 | Inpatient (IN) | payer OTHER, MEDICAID ==
[~2018-09-10] VITALS: Ht 162.6 cm; Wt 63.5 kg
[2018-09-10 13:41] LABS: Basophils # (auto) 0.1 uL; Basophils % (auto) 1.4 % (0.0-2.0); Eosinophils # (auto) 0.1 uL; Eosinophils % (auto) 1.2 % (0.0-7.0); Hematocrit 38.1 % (36.0-46.0); Hemoglobin 12.6 g/dL (12.2-16.2); Lymphocytes # (auto) 2.2 uL; Lymphocytes % (auto) 31.3 % (10.0-50.0); Mean Corpuscular Volume 87.6 fL (80.0-100.0); Monocytes # (auto) 0.8 uL; Monocytes % (auto) 11.7 % (0.0-12.0); Neutrophils # (auto) 3.8 uL; Neutrophils % (auto) 54.4 % (37.0-80.0); Nucleated Red Blood Cells % 0.1 %; Platelet Count (auto) 342 10^3/uL (140-450); Red Blood Cells 4.35 10^6/uL (4.0-5.20); Red Cell Distribution Width 15.9 % (11.8-14.3)
[2018-09-10 13:56] LABS: Alanine Aminotransferase 16 U/L (13-56); Albumin 2.9 g/dL (3.4-5.0); Anion Gap 7 (5-15); Aspartate Aminotransferase 14 U/L (15-37); BUN/Creatinine Ratio 17.3; Blood Urea Nitrogen 13 mg/dL (7-18); Calcium 8.2 mg/dL (8.5-10.1); Carbon Dioxide 25 mmol/L (21-32); Chloride 107 mmol/L (98-107); GFR African American 98 mL/min; GFR Non-African American 81 mL/min; Glucose 101 mg/dL (74-106); Potassium 3.8 mmol/L (3.5-5.1); Sodium 139 mmol/L (136-145)
[2018-09-10 14:00] LABS: Alkaline Phosphatase 85 U/L (45-117); Bilirubin, Total 0.2 mg/dL (0.2-1.0); Total Protein 7.4 g/dL (6.4-8.2)
[2018-09-10 14:01] LABS: INR 0.95 (0.9-1.15); Partial Thromboplastin Time 28.1 sec (23.78-33.04); Prothrombin Time 10.2 sec (9.27-12.13)
[2018-09-10] MEDS ORDERED: ONDANSETRON HCL 4 MG/2 ML VIAL IV ONE ×2 (14:15→15:15)
[2018-09-10] MEDS ORDERED: cloNIDine HCL 0.1 MG TAB PO ONE (14:15)
[2018-09-10] MEDS ORDERED: MORPHINE SULFATE 4 MG/ML SYR/VIAL IV ONE (14:15)
[2018-09-10] MEDS ORDERED: HYDROmorphone HCL 2 MG/ML VL IV ONE (15:15)
[2018-09-10] MEDS ORDERED: ALUM & MAG HYDROX-SIMETH LIQ(MAALOX) 30 ML PO ONE (15:15)
[2018-09-10] MEDS ORDERED: PANTOPRAZOLE 40 MG/10 ML VIAL IV ONE (15:15)
[2018-09-10] MEDS ORDERED: MORPHINE SULFATE 4 MG/ML SYR/VIAL IV PRN (15:45)
[2018-09-10] MEDS ORDERED: NITROGLYCERIN 0.4 MG SL TAB SL PRN (15:45)
[2018-09-10] MEDS ORDERED: ALPRAZolam 0.5 MG TAB PO PRN (15:45)
[2018-09-10] MEDS ORDERED: ONDANSETRON HCL 4 MG/2 ML VIAL IV PRN (15:45)
[2018-09-10] MEDS ORDERED: cloNIDine HCL 0.1 MG TAB PO PRN (15:45)
[2018-09-10 16:39] LABS: Urine Bacteria NONE SEEN /hpf (None Seen); Urine Blood Negative /uL (Negative); Urine Specific Gravity 1.013 (1.001-1.035); Urine WBC 11 /hpf (0 - 5)
[2018-09-10 16:45] LABS: Amylase 45 U/L (25-115); Lipase 141 U/L (73-393)
[2018-09-10] MEDS: CARBIDOPA W LEVODOPA 25/100mg TABLET PO SCH ×2 (18:45→21:22)
[2018-09-10] MEDS: HYDROcodone-ACET 5/325MG TAB PO PRN (18:46)
[2018-09-10 20:00] VITALS: BP 151/70
[2018-09-10 20:12] VITALS: BP 156/59
[2018-09-10] MEDS: ASPIRIN-DIPYRIDAMOLE (25/200MG) CAPSULE PO SCH (21:20)
[2018-09-10] MEDS: LEVETIRACETAM 500 MG TAB PO SCH (21:21)
[2018-09-10] MEDS: LISINOPRIL 20 MG TAB PO SCH (21:23)
[2018-09-10] MEDS ORDERED: MIRTAZAPINE 30 MG TAB PO SCH (22:00)
[2018-09-10] MEDS ORDERED: ATORVASTATIN 20 MG TAB PO SCH (22:00)
[2018-09-10] MEDS: ALBUTEROL SULF 2.5 MG/0.5ML(0.5%) NEB SOLN NEB PRN (22:42)
[2018-09-10 23:06] VITALS: BP 151/70
[2018-09-11 05:14] VITALS: BP 142/79
[2018-09-11] MEDS: CARBIDOPA W LEVODOPA 25/100mg TABLET PO SCH ×2 (06:22→11:42)
[2018-09-11] MEDS ORDERED: LEVOTHYROXINE SODIUM 50 MCG TAB PO SCH (07:00)
[2018-09-11 07:15] LABS: Anion Gap 5 (5-15); Blood Urea Nitrogen 11 mg/dL (7-18); Calcium 8.6 mg/dL (8.5-10.1); Carbon Dioxide 29 mmol/L (21-32); Chloride 103 mmol/L (98-107); Glucose 85 mg/dL (74-106); Potassium 4.3 mmol/L (3.5-5.1); Sodium 137 mmol/L (136-145)
[2018-09-11 07:18] LABS: BUN/Creatinine Ratio 13.9; GFR African American 92 mL/min; GFR Non-African American 76 mL/min
[2018-09-11 08:00] VITALS: BP 162/75
[2018-09-11 08:47] VITALS: BP 162/75
[2018-09-11] MEDS: ASPIRIN-DIPYRIDAMOLE (25/200MG) CAPSULE PO SCH (09:25)
[2018-09-11] MEDS: LEVETIRACETAM 500 MG TAB PO SCH (09:26)
[2018-09-11] MEDS: LISINOPRIL 20 MG TAB PO SCH (09:26)
[2018-09-11] MEDS: HYDROcodone-ACET 5/325MG TAB PO PRN (09:27)
[2018-09-11] MEDS: ALBUTEROL SULF 2.5 MG/0.5ML(0.5%) NEB SOLN NEB PRN (09:43)
[2018-09-11] MEDS ORDERED: PANTOPRAZOLE 40 MG TAB PO SCH (10:00)
[2018-09-11] MEDS ORDERED: OLANZapine 5 MG TAB PO SCH (10:00)
[2018-09-11 13:14] VITALS: BP 141/60
[2018-09-11 17:00] VITALS: BP 162/72
== END 2018-09-11 17:43 | disposition home or self-care (01) | DRG 313 ==
LOC: EDBD 12:57 → ER 13:00 → TELE 15:52 → TELE-WESTW 17:43
PROVIDERS: ADMIT Internal Medicine; ATTEND Internal Medicine
DX: R07.89 Other chest pain (principal); I11.0 Hypertensive heart disease with heart failure; I50.9 Heart failure, unspecified; E03.9 Hypothyroidism, unspecified; F03.90 Unspecified dementia, unspecified severity, without behavioral disturbance, psychotic disturbance, mood disturbance, and anxiety; F17.210 Nicotine dependence, cigarettes, uncomplicated; F41.9 Anxiety disorder, unspecified; G20 Parkinson's disease; J44.9 Chronic obstructive pulmonary disease, unspecified; Z80.0 Family history of malignant neoplasm of digestive organs; Z88.8 Allergy status to other drugs, medicaments and biological substances; Z80.1 Family history of malignant neoplasm of trachea, bronchus and lung; Z88.0 Allergy status to penicillin; Z88.2 Allergy status to sulfonamides; Z80.3 Family history of malignant neoplasm of breast; Z80.41 Family history of malignant neoplasm of ovary; Z80.8 Family history of malignant neoplasm of other organs or systems; Z81.8 Family history of other mental and behavioral disorders; Z82.0 Family history of epilepsy and other diseases of the nervous system; Z82.3 Family history of stroke; Z82.49 Family history of ischemic heart disease and other diseases of the circulatory system; Z82.5 Family history of asthma and other chronic lower respiratory diseases; Z82.62 Family history of osteoporosis; Z83.3 Family history of diabetes mellitus; Z86.73 Personal history of transient ischemic attack (TIA), and cerebral infarction without residual deficits; Z90.710 Acquired absence of both cervix and uterus; Z79.82 Long term (current) use of aspirin; Z79.899 Other long term (current) drug therapy
CPT/HCPCS: 36415; 70450; 71045; 76705; 80048; 80053; 81001; 82150; 83690; 83735; 83880; 84443; 84484; 85025; 85610; 85730; 94640; 96374; 96375; C9113; G0378; J2405

== ENCOUNTER 2018-10-31 06:21 | Emergency (ER) | payer OTHER, MEDICAID ==
[~2018-10-31] VITALS: Ht 167.6 cm; Wt 66.2 kg
[~2018-10-31 06:21] MED LIST changes: -DOXY-338 PO; -HYDR-4683 PO; +MET25T PO; -METH4PAK PO; +NITR100C44 PO
[2018-10-31 07:49] LABS: Basophils # (auto) 0.1 uL; Basophils % (auto) 1.4 % (0.0-2.0); Eosinophils # (auto) 0.1 uL; Eosinophils % (auto) 1.1 % (0.0-7.0); Hematocrit 41.1 % (36.0-46.0); Hemoglobin 13.7 g/dL (12.2-16.2); Lymphocytes # (auto) 1.9 uL; Lymphocytes % (auto) 23.1 % (10.0-50.0); Mean Corpuscular Hemoglobin 29.3 pg (28.0-32.0); Mean Corpuscular Hgb Conc. 33.4 g/dL (32.0-36.0); Mean Corpuscular Volume 87.6 fL (80.0-100.0); Monocytes # (auto) 0.8 uL; Neutrophils # (auto) 5.3 uL; Neutrophils % (auto) 64.4 % (37.0-80.0); Platelet Count (auto) 332 10^3/uL (140-450); Red Blood Cells 4.69 10^6/uL (4.0-5.20); Red Cell Distribution Width 15.6 % (11.8-14.3); White Blood Cell 8.2 10^3/uL (4.4-10.8)
[2018-10-31 08:01] LABS: Albumin 3.1 g/dL (3.4-5.0); Anion Gap 10 (5-15); BUN/Creatinine Ratio 11.1; Blood Urea Nitrogen 9 mg/dL (7-18); Calcium 8.5 mg/dL (8.5-10.1); Carbon Dioxide 25 mmol/L (21-32); Chloride 99 mmol/L (98-107); GFR African American 90 mL/min; GFR Non-African American 74 mL/min; Glucose 85 mg/dL (74-106); Potassium 4.2 mmol/L (3.5-5.1); Sodium 134 mmol/L (136-145)
[2018-10-31 08:04] LABS: INR 0.9 (0.9-1.15); Partial Thromboplastin Time 28.9 sec (23.78-33.04); Prothrombin Time 9.7 sec (9.27-12.13)
[2018-10-31 08:09] LABS: Alanine Aminotransferase 15 U/L (13-56); Alkaline Phosphatase 90 U/L (45-117); Aspartate Aminotransferase 13 U/L (15-37); Bilirubin, Total 0.2 mg/dL (0.2-1.0); Total Protein 8.2 g/dL (6.4-8.2)
[2018-10-31 08:33] LABS: Urine Bacteria FEW /hpf (None Seen); Urine Blood TRACE /uL (Negative); Urine Specific Gravity 1.004 (1.001-1.035); Urine WBC 3 /hpf (0 - 5)
[2018-10-31] MEDS: cloNIDine HCL 0.1 MG TAB PO ONE (09:45)
[2018-10-31] MEDS: HYDROcodone-ACET 5/325MG TAB PO ONE (09:57)
[2018-10-31 10:24] VITALS: BP 169/71
== END 2018-10-31 10:44 | disposition home or self-care (01) ==
LOC: EDBD 06:21 → ER 06:28
CPT/HCPCS: 36415; 70450; 71045; 80053; 81001; 83880; 84484; 85025; 85610; 85730

== ENCOUNTER 2019-01-27 12:56 | Emergency (ER) | payer MEDICAID, OTHER ==
[~2019-01-27] VITALS: Ht 162.6 cm; Wt 72.6 kg
[~2019-01-27 12:56] MED LIST changes: +DEXT1SYP9 PO; +DOXY-338 PO; -MET25T PO; -NITR100C44 PO
[2019-01-27 13:57] LABS: Basophils # (auto) 0.1 uL; Basophils % (auto) 0.7 % (0.0-2.0); Eosinophils # (auto) 0 uL; Eosinophils % (auto) 0.3 % (0.0-7.0); Hemoglobin 12.9 g/dL (12.2-16.2); Lymphocytes # (auto) 1.9 uL; Lymphocytes % (auto) 18.6 % (10.0-50.0); Mean Corpuscular Hemoglobin 29.5 pg (28.0-32.0); Mean Corpuscular Volume 89.4 fL (80.0-100.0); Monocytes % (auto) 10.2 % (0.0-12.0); Neutrophils # (auto) 7.1 uL; Neutrophils % (auto) 70.2 % (37.0-80.0); Nucleated Red Blood Cells % 0.2 %; Platelet Count (auto) 361 10^3/uL (140-450); Red Blood Cells 4.37 10^6/uL (4.0-5.20); Red Cell Distribution Width 19.3 % (11.8-14.3); White Blood Cell 10.1 10^3/uL (4.4-10.8)
[2019-01-27 14:13] LABS: Albumin 2.6 g/dL (3.4-5.0); BUN/Creatinine Ratio 14.6; Potassium 3.6 mmol/L (3.5-5.1)
[2019-01-27 14:18] LABS: Bilirubin, Total 0.2 mg/dL (0.2-1.0); Total Protein 6.6 g/dL (6.4-8.2)
[2019-01-27 14:56] LABS: Urine Bacteria FEW /hpf (None Seen); Urine Blood TRACE /uL (Negative); Urine Mucus FEW (None Seen); Urine Specific Gravity 1.009 (1.001-1.035); Urine WBC 9 /hpf (0 - 5)
[2019-01-27] MEDS ORDERED: IPRATROPIUM BROM 0.5 MG/2.5ML INH SOL NEB ONE (15:30)
[2019-01-27] MEDS ORDERED: ALBUTEROL SULF 2.5 MG/0.5ML(0.5%) NEB SOLN NEB ONE (15:30)
[2019-01-27] MEDS ORDERED: methylPREDNISolone SOD SUCC 125 MG/2 ML VL IM ONE (15:30)
[2019-01-27 16:00] VITALS: BP 170/85
== END 2019-01-27 16:39 | disposition home or self-care (01) ==
LOC: EDBD 12:56 → ER 12:56
DX: J44.1 Chronic obstructive pulmonary disease with (acute) exacerbation (principal); N39.0 Urinary tract infection, site not specified; I11.0 Hypertensive heart disease with heart failure; I50.9 Heart failure, unspecified; F17.210 Nicotine dependence, cigarettes, uncomplicated; F41.9 Anxiety disorder, unspecified; F03.90 Unspecified dementia, unspecified severity, without behavioral disturbance, psychotic disturbance, mood disturbance, and anxiety; F32.9 Major depressive disorder, single episode, unspecified; Z86.73 Personal history of transient ischemic attack (TIA), and cerebral infarction without residual deficits; Z79.2 Long term (current) use of antibiotics; Z79.899 Other long term (current) drug therapy; Z88.1 Allergy status to other antibiotic agents; Z88.6 Allergy status to analgesic agent; Z88.0 Allergy status to penicillin; Z88.2 Allergy status to sulfonamides
CPT/HCPCS: 36415; 71045; 80053; 81001; 83880; 84484; 85025; 93005; 94640; 96372; 99284; J2930; J7611; J7644

== ENCOUNTER 2019-02-06 16:24 | Emergency (ER) | payer OTHER ==
[~2019-02-06] VITALS: Ht 167.6 cm; Wt 72.6 kg
[2019-02-06 17:33] LABS: Basophils # (auto) 0 uL; Basophils % (auto) 0.3 % (0.0-2.0); Eosinophils # (auto) 0.1 uL; Hematocrit 37.2 % (36.0-46.0); Lymphocytes # (auto) 2.1 uL; Lymphocytes % (auto) 21.8 % (10.0-50.0); Mean Corpuscular Hemoglobin 29.2 pg (28.0-32.0); Mean Corpuscular Hgb Conc. 32.3 g/dL (32.0-36.0); Mean Corpuscular Volume 90.3 fL (80.0-100.0); Monocytes # (auto) 1.1 uL; Monocytes % (auto) 11.3 % (0.0-12.0); Neutrophils # (auto) 6.3 uL; Neutrophils % (auto) 65.6 % (37.0-80.0); Platelet Count (auto) 369 10^3/uL (140-450); Red Blood Cells 4.11 10^6/uL (4.0-5.20); Red Cell Distribution Width 18.8 % (11.8-14.3); White Blood Cell 9.7 10^3/uL (4.4-10.8)
[2019-02-06 17:54] LABS: Alanine Aminotransferase 14 U/L (13-56); Albumin 2.6 g/dL (3.4-5.0); Anion Gap 6 (5-15); Aspartate Aminotransferase 13 U/L (15-37); BUN/Creatinine Ratio 18.8; Blood Urea Nitrogen 13 mg/dL (7-18); Calcium 8.2 mg/dL (8.5-10.1); Carbon Dioxide 28 mmol/L (21-32); Chloride 104 mmol/L (98-107); GFR African American 108 mL/min; GFR Non-African American 89 mL/min; Glucose 79 mg/dL (74-106); Magnesium 2.3 mg/dL (1.6-2.6); Sodium 138 mmol/L (136-145)
[2019-02-06 17:58] LABS: Alkaline Phosphatase 73 U/L (45-117); Bilirubin, Total 0.2 mg/dL (0.2-1.0); Total Protein 6.5 g/dL (6.4-8.2)
[2019-02-06] MEDS ORDERED: HYDROcodone-ACET 10/325MG TAB PO ONE (19:00)
[2019-02-06 19:15] VITALS: BP 184/74
== END 2019-02-06 19:37 | disposition home or self-care (01) ==
LOC: EDBD 16:24 → ER 16:30
DX: R07.89 Other chest pain (principal); J44.9 Chronic obstructive pulmonary disease, unspecified; I11.0 Hypertensive heart disease with heart failure; I50.9 Heart failure, unspecified; F17.210 Nicotine dependence, cigarettes, uncomplicated; R11.2 Nausea with vomiting, unspecified; Z90.710 Acquired absence of both cervix and uterus; Z86.39 Personal history of other endocrine, nutritional and metabolic disease; Z88.0 Allergy status to penicillin; Z88.1 Allergy status to other antibiotic agents; Z88.2 Allergy status to sulfonamides; Z88.8 Allergy status to other drugs, medicaments and biological substances
CPT/HCPCS: 36415; 71045; 80053; 83735; 83880; 84484; 85025; 93005; 94761

== ENCOUNTER 2019-02-28 08:27 | Emergency (ER) | payer OTHER, MEDICAID ==
[~2019-02-28] VITALS: Ht 162.6 cm; Wt 59.0 kg
[2019-02-28] MEDS ORDERED: ALBUTEROL SULF 2.5 MG/0.5ML(0.5%) NEB SOLN NEB ONE (09:00)
[2019-02-28 09:02] VITALS: BP 167/68
[2019-02-28 09:43] LABS: Basophils # (auto) 0.1 uL; Basophils % (auto) 1.3 % (0.0-2.0); Eosinophils # (auto) 0.2 uL; Hemoglobin 11.9 g/dL (12.2-16.2); Lymphocytes # (auto) 1.7 uL; Mean Corpuscular Hemoglobin 28.8 pg (28.0-32.0); Mean Corpuscular Volume 89.8 fL (80.0-100.0); Monocytes % (auto) 11.7 % (0.0-12.0); Neutrophils # (auto) 5.2 uL; Platelet Count (auto) 304 10^3/uL (140-450); Red Blood Cells 4.12 10^6/uL (4.0-5.20); White Blood Cell 8.2 10^3/uL (4.4-10.8)
[2019-02-28 10:00] LABS: Urine Bacteria FEW /hpf (None Seen); Urine Blood TRACE /uL (Negative); Urine Specific Gravity 1.004 (1.001-1.035); Urine WBC 6 /hpf (0 - 5)
[2019-02-28 10:02] LABS: Alanine Aminotransferase 9 U/L (13-56); Albumin 2.6 g/dL (3.4-5.0); Anion Gap 4 (5-15); Aspartate Aminotransferase 11 U/L (15-37); Blood Urea Nitrogen 12 mg/dL (7-18); Calcium 8.3 mg/dL (8.5-10.1); Carbon Dioxide 29 mmol/L (21-32); Chloride 106 mmol/L (98-107); Glucose 88 mg/dL (74-106); Potassium 3.8 mmol/L (3.5-5.1); Sodium 139 mmol/L (136-145)
[2019-02-28 10:07] LABS: Alkaline Phosphatase 77 U/L (45-117); BUN/Creatinine Ratio 16.9; Bilirubin, Total 0.2 mg/dL (0.2-1.0); GFR African American 104 mL/min; GFR Non-African American 86 mL/min
== END 2019-02-28 10:53 | disposition home or self-care (01) ==
LOC: ER 08:27 → EDBD 08:27 → ER 10:53
DX: N39.0 Urinary tract infection, site not specified (principal); I11.0 Hypertensive heart disease with heart failure; I50.9 Heart failure, unspecified; E07.9 Disorder of thyroid, unspecified; F17.210 Nicotine dependence, cigarettes, uncomplicated; Z88.1 Allergy status to other antibiotic agents; Z88.0 Allergy status to penicillin; Z88.2 Allergy status to sulfonamides; Z79.899 Other long term (current) drug therapy; Z79.82 Long term (current) use of aspirin; Z86.73 Personal history of transient ischemic attack (TIA), and cerebral infarction without residual deficits; Z90.710 Acquired absence of both cervix and uterus
CPT/HCPCS: 36415; 70450; 72192; 80053; 81001; 84484; 85025; 94640; 99284; J7611

== ENCOUNTER 2019-03-19 10:00 | Emergency (ER) | payer OTHER, MEDICAID ==
[~2019-03-19] VITALS: Ht 170.2 cm; Wt 77.1 kg
[2019-03-19 11:12] LABS: Basophils # (auto) 0 uL; Basophils % (auto) 0.4 % (0.0-2.0); Eosinophils # (auto) 0.1 uL; Eosinophils % (auto) 0.7 % (0.0-7.0); Hematocrit 38.8 % (36.0-46.0); Hemoglobin 12.9 g/dL (12.2-16.2); Lymphocytes # (auto) 1.6 uL; Lymphocytes % (auto) 22.2 % (10.0-50.0); Mean Corpuscular Hemoglobin 29.1 pg (28.0-32.0); Mean Corpuscular Hgb Conc. 33.1 g/dL (32.0-36.0); Mean Corpuscular Volume 87.8 fL (80.0-100.0); Monocytes # (auto) 0.7 uL; Monocytes % (auto) 9.2 % (0.0-12.0); Neutrophils # (auto) 4.8 uL; Neutrophils % (auto) 67.5 % (37.0-80.0); Nucleated Red Blood Cells % 0.1 %; Platelet Count (auto) 373 10^3/uL (140-450); Red Blood Cells 4.43 10^6/uL (4.0-5.20); Red Cell Distribution Width 16.8 % (11.8-14.3); White Blood Cell 7.1 10^3/uL (4.4-10.8)
[2019-03-19 11:49] LABS: Alanine Aminotransferase 13 U/L (13-56); Albumin 3.2 g/dL (3.4-5.0); Anion Gap 6 (5-15); Aspartate Aminotransferase 13 U/L (15-37); Blood Urea Nitrogen 8 mg/dL (7-18); Calcium 8.7 mg/dL (8.5-10.1); Carbon Dioxide 27 mmol/L (21-32); Chloride 105 mmol/L (98-107); Glucose 112 mg/dL (74-106); Potassium 3.9 mmol/L (3.5-5.1); Sodium 138 mmol/L (136-145)
[2019-03-19 11:54] LABS: Alkaline Phosphatase 80 U/L (45-117); BUN/Creatinine Ratio 10.7; Bilirubin, Total 0.2 mg/dL (0.2-1.0); GFR African American 98 mL/min; GFR Non-African American 81 mL/min; Total Protein 7.6 g/dL (6.4-8.2)
[2019-03-19] MEDS ORDERED: cloNIDine HCL 0.1 MG TAB PO ONE (15:45)
[2019-03-19 16:57] VITALS: BP 160/60
[2019-03-19] MEDS ORDERED: ACETAMINOPHEN 325 MG TAB PO ONE (17:15)
[2019-03-19 17:16] LABS: Urine Bacteria NONE SEEN /hpf (None Seen); Urine Blood TRACE /uL (Negative); Urine Mucus FEW (None Seen); Urine Specific Gravity 1.002 (1.001-1.035); Urine WBC 11 /hpf (0 - 5)
== END 2019-03-19 18:24 | disposition left against medical advice (07) ==
LOC: ER 10:00 → EDBD 10:00 → ER 18:17
DX: I11.0 Hypertensive heart disease with heart failure (principal); R51 Headache; R07.9 Chest pain, unspecified; I50.9 Heart failure, unspecified; J44.9 Chronic obstructive pulmonary disease, unspecified; F17.210 Nicotine dependence, cigarettes, uncomplicated; F41.9 Anxiety disorder, unspecified; F32.9 Major depressive disorder, single episode, unspecified; Z86.39 Personal history of other endocrine, nutritional and metabolic disease; Z88.0 Allergy status to penicillin; Z88.1 Allergy status to other antibiotic agents; Z88.2 Allergy status to sulfonamides; Z88.8 Allergy status to other drugs, medicaments and biological substances; Z79.899 Other long term (current) drug therapy
CPT/HCPCS: 36415; 71046; 80053; 81001; 84484; 85025; 93005

== ENCOUNTER 2019-06-04 18:12 | Inpatient (IN) | payer OTHER, MEDICAID ==
[~2019-06-04] VITALS: Ht 162.6 cm; Wt 63.5 kg
[2019-06-04 18:55] LABS: Basophils # (auto) 0.1 uL; Basophils % (auto) 1.8 % (0.0-2.0); Eosinophils # (auto) 0 uL; Eosinophils % (auto) 0.5 % (0.0-7.0); Hematocrit 42.8 % (36.0-46.0); Hemoglobin 14.4 g/dL (12.2-16.2); Lymphocytes # (auto) 2.4 uL; Lymphocytes % (auto) 30.7 % (10.0-50.0); Mean Corpuscular Hemoglobin 28.3 pg (28.0-32.0); Mean Corpuscular Hgb Conc. 33.7 g/dL (32.0-36.0); Mean Corpuscular Volume 83.9 fL (80.0-100.0); Monocytes # (auto) 0.9 uL; Neutrophils # (auto) 4.3 uL; Nucleated Red Blood Cells % 0.1 %; Platelet Count (auto) 357 10^3/uL (140-450); Red Cell Distribution Width 16.4 % (11.8-14.3); White Blood Cell 7.8 10^3/uL (4.4-10.8)
[2019-06-04 19:05] LABS: Alanine Aminotransferase 20 U/L (13-56); Albumin 3.5 g/dL (3.4-5.0); Anion Gap 9 (5-15); Aspartate Aminotransferase 9 U/L (15-37); BUN/Creatinine Ratio 9.1; Blood Urea Nitrogen 8 mg/dL (7-18); Carbon Dioxide 24 mmol/L (21-32); Chloride 108 mmol/L (98-107); GFR African American 81 mL/min; GFR Non-African American 67 mL/min; Glucose 99 mg/dL (74-106); Potassium 3.3 mmol/L (3.5-5.1); Sodium 141 mmol/L (136-145)
[2019-06-04 19:10] LABS: Alkaline Phosphatase 101 U/L (45-117); Bilirubin, Total 0.3 mg/dL (0.2-1.0); Total Protein 8.6 g/dL (6.4-8.2)
[2019-06-05] MEDS ORDERED: HYDROcodone-ACET 7.5/325MG TAB PO ONE
[2019-06-05] MEDS ORDERED: METOPROLOL TARTRATE 50 MG TAB PO ONE (00:15)
[2019-06-05] MEDS ORDERED: FUROSEMIDE 20 MG/2 ML VIAL IV ONE (00:15)
[2019-06-05 00:46] LABS: Basophils # (auto) 0.1 uL; Basophils % (auto) 1.3 % (0.0-2.0); Eosinophils # (auto) 0.1 uL; Eosinophils % (auto) 0.7 % (0.0-7.0); Hematocrit 43.5 % (36.0-46.0); Hemoglobin 14.2 g/dL (12.2-16.2); Lymphocytes # (auto) 1.8 uL; Lymphocytes % (auto) 21.6 % (10.0-50.0); Mean Corpuscular Hemoglobin 27.5 pg (28.0-32.0); Mean Corpuscular Hgb Conc. 32.6 g/dL (32.0-36.0); Mean Corpuscular Volume 84.5 fL (80.0-100.0); Monocytes # (auto) 1.2 uL; Monocytes % (auto) 14.8 % (0.0-12.0); Neutrophils # (auto) 5.2 uL; Neutrophils % (auto) 61.6 % (37.0-80.0); Nucleated Red Blood Cells % 0.1 %; Platelet Count (auto) 329 10^3/uL (140-450); Red Blood Cells 5.15 10^6/uL (4.0-5.20); Red Cell Distribution Width 16.3 % (11.8-14.3); White Blood Cell 8.4 10^3/uL (4.4-10.8)
[2019-06-05 01:02] LABS: Albumin 3.3 g/dL (3.4-5.0); BUN/Creatinine Ratio 10.7; Calcium 8.7 mg/dL (8.5-10.1); Potassium 3.4 mmol/L (3.5-5.1)
[2019-06-05 01:07] LABS: Bilirubin, Total 0.2 mg/dL (0.2-1.0); Total Protein 8.5 g/dL (6.4-8.2)
[2019-06-05 01:21] LABS: Urine Bacteria NONE SEEN /hpf (None Seen); Urine Blood TRACE /uL (Negative); Urine Specific Gravity 1.006 (1.001-1.035); Urine WBC 11 /hpf (0 - 5)
[2019-06-05] MEDS ORDERED: cloNIDine HCL 0.1 MG TAB PO ONE (01:45)
[2019-06-05] MEDS ORDERED: hydrALAZINE HCL 20 MG/ML VL IV ONE (02:30)
[2019-06-05] MEDS ORDERED: TEMAZEPAM 15 MG CAP PO ONE (04:45)
[2019-06-05] MEDS ORDERED: ONDANSETRON HCL 4 MG/2 ML VIAL IV PRN (05:00)
[2019-06-05] MEDS ORDERED: ACETAMINOPHEN 325 MG TAB PO PRN (05:00)
[2019-06-05] MEDS ORDERED: TEMAZEPAM 15 MG CAP PO PRN (05:00)
[2019-06-05] MEDS ORDERED: LEVOTHYROXINE SODIUM 25 MCG TAB PO SCH (06:00)
[2019-06-05] MEDS ORDERED: cloNIDine HCL 0.1 MG TAB PO SCH (06:00)
[2019-06-05] MEDS: CARBIDOPA W LEVODOPA 25/100mg TABLET PO SCH ×2 (06:17→12:06)
[2019-06-05] MEDS ORDERED: busPIRone HCL 10 MG TAB PO SCH (10:00)
[2019-06-05] MEDS ORDERED: NITROFURANTOIN (MONO) 100 mg CAP PO SCH (10:00)
[2019-06-05] MEDS ORDERED: FAMOTIDINE 20 MG TAB PO SCH (10:00)
[2019-06-05] MEDS ORDERED: LEVETIRACETAM 500 MG TAB PO SCH (10:00)
[2019-06-05] MEDS ORDERED: LISINOPRIL 20 MG TAB PO SCH (10:00)
[2019-06-05] MEDS ORDERED: ENOXAPARIN SOD 40 MG/0.4 ML SYRINGE SC SCH (10:00)
[2019-06-05] MEDS ORDERED: ASPIRIN-DIPYRIDAMOLE (25/200MG) CAPSULE PO SCH (10:00)
[2019-06-05 10:20] VITALS: BP 134/91
--- NOTE | 2019-06-05 17:09 | NUR ---
assessment Ss consult home health safety eval faxed to [facility] ph: [phone] fx: [phone] Per Omkar pt has been accepted and service to start in 24-48 hrs. Need auth from [facility] for rehab medicine. Pt agrees to discharge plan. Addendum: 06/05/19 at 1709 by Jazmyn Hickman SS Amended: Links added.
[2019-06-06] MEDS ORDERED: LEVOTHYROXINE SODIUM 100 MCG TAB PO SCH (06:00)
== END 2019-06-05 13:44 | disposition home or self-care (01) | DRG 304 ==
LOC: EDBD 18:12 → ER 18:12 → OVERFLOW 18:13
PROVIDERS: ADMIT Nurse Practitioner; ATTEND Internal Medicine
DX: I16.0 Hypertensive urgency (principal); I50.43 Acute on chronic combined systolic (congestive) and diastolic (congestive) heart failure; N39.0 Urinary tract infection, site not specified; J44.1 Chronic obstructive pulmonary disease with (acute) exacerbation; E03.9 Hypothyroidism, unspecified; F02.80 Dementia in other diseases classified elsewhere, unspecified severity, without behavioral disturbance, psychotic disturbance, mood disturbance, and anxiety; G30.9 Alzheimer's disease, unspecified; I11.0 Hypertensive heart disease with heart failure; G40.909 Epilepsy, unspecified, not intractable, without status epilepticus; F32.9 Major depressive disorder, single episode, unspecified; F17.210 Nicotine dependence, cigarettes, uncomplicated; Z80.1 Family history of malignant neoplasm of trachea, bronchus and lung; Z80.3 Family history of malignant neoplasm of breast; Z83.3 Family history of diabetes mellitus; Z80.41 Family history of malignant neoplasm of ovary; Z80.8 Family history of malignant neoplasm of other organs or systems; Z81.8 Family history of other mental and behavioral disorders; Z82.0 Family history of epilepsy and other diseases of the nervous system; Z82.49 Family history of ischemic heart disease and other diseases of the circulatory system; Z82.5 Family history of asthma and other chronic lower respiratory diseases; Z82.62 Family history of osteoporosis; Z90.710 Acquired absence of both cervix and uterus; Z82.3 Family history of stroke; Z88.1 Allergy status to other antibiotic agents; Z88.2 Allergy status to sulfonamides; Z88.0 Allergy status to penicillin; Z88.8 Allergy status to other drugs, medicaments and biological substances
CPT/HCPCS: 36415; 71045; 80053; 81001; 83880; 84443; 84484; 85025; 93005; 96374; 96375; G0378

== ENCOUNTER 2019-07-23 00:50 | Emergency (ER) | payer OTHER, MEDICAID ==
[~2019-07-23] VITALS: Ht 170.2 cm; Wt 77.1 kg
[~2019-07-23 00:50] MED LIST changes: -LEVO50TA7 PO
[2019-07-23] MEDS ORDERED: LIDOCAINE 2% (LOCAL ANESTH.) PF 5ml SDV ONE (04:12)
[2019-07-23] MEDS ORDERED: LIDOCAINE W/ EPINEPHRINE 1% 20ML VIAL SC ONE (04:15)
[2019-07-23] MEDS ORDERED: NEOMYCIN-BACITRACIN-POLYM 15GM TOP OINT TOP SCH (05:45)
[2019-07-23] MEDS ORDERED: ceFAZolin IM 1GM/2.5ML STERILE WATER IM ONE (06:15)
[2019-07-23] MEDS ORDERED: ceFAZolin 1GM VL ONE (07:53)
[2019-07-23 08:00] VITALS: BP 188/61
== END 2019-07-23 08:16 | disposition home or self-care (01) ==
LOC: EDBD 00:50 → ER 00:53
DX: S01.81XA Laceration without foreign body of other part of head, initial encounter (principal); I11.0 Hypertensive heart disease with heart failure; I50.9 Heart failure, unspecified; J44.9 Chronic obstructive pulmonary disease, unspecified; F17.210 Nicotine dependence, cigarettes, uncomplicated; Z90.710 Acquired absence of both cervix and uterus; Z86.39 Personal history of other endocrine, nutritional and metabolic disease; Z88.0 Allergy status to penicillin; Z88.1 Allergy status to other antibiotic agents; Z88.2 Allergy status to sulfonamides; Z79.899 Other long term (current) drug therapy; V80.010A Animal-rider injured by fall from or being thrown from horse in noncollision accident, initial encounter; Y93.52 Activity, horseback riding; Y92.89 Other specified places as the place of occurrence of the external cause; Y99.8 Other external cause status
CPT/HCPCS: 12016; 70450; 72125; 96372; 99284; J0690; J2001

== ENCOUNTER → 2020-01-23 | Emergency (ER) | payer OTHER, MEDICAID ==
[~2020-01-23] VITALS: Ht 162.6 cm; Wt 70.3 kg
[~2020-01-23] MED LIST changes: -DOXY-338 PO; +OLAN1TAB7 PO; -OLAN5TAB30 PO
[2020-01-23 12:35] VITALS: BP 157/57
== END | disposition home or self-care (01) ==
LOC: EDUNIT# 11:44 → ER 11:54 → EDBD 11:54
DX: R07.89 Other chest pain (principal); I11.0 Hypertensive heart disease with heart failure; I50.9 Heart failure, unspecified; J44.9 Chronic obstructive pulmonary disease, unspecified; E78.5 Hyperlipidemia, unspecified; I10 Essential (primary) hypertension; E07.9 Disorder of thyroid, unspecified; F17.210 Nicotine dependence, cigarettes, uncomplicated; Z88.0 Allergy status to penicillin; Z88.1 Allergy status to other antibiotic agents; Z88.2 Allergy status to sulfonamides; Z88.6 Allergy status to analgesic agent
CPT/HCPCS: 71045; 93005

== ENCOUNTER 2020-02-16 16:44 | Inpatient (IN) | payer OTHER, MEDICAID ==
[2020-02-16] VITALS (9 sets, daily range): BP systolic 70–101; BP diastolic 46–69
[~2020-02-16] VITALS: Ht 172.7 cm; Wt 65.2 kg
[2020-02-16] MEDS: POTASSIUM CHL 20MEQ/100ML 100 ML IV SCH ×4 (00:15→22:47)
[2020-02-16] MEDS ORDERED: ETOMIDATE (2MG/ML) 20ML VIAL IV ONE ×2 (16:49→17:00)
[2020-02-16] MEDS ORDERED: SUCCINYLCHOLINE CHLORIDE 20 MG/ML 10ML VIAL IV ONE ×2 (16:49→17:00)
[2020-02-16] MEDS ORDERED: MIDAZOLAM DRIP 50 mg/50mL 50 ML IV ONE (16:50)
[2020-02-16] MEDS ORDERED: MIDAZOLAM DRIP 50 mg/50mL 50 ML IV SCH (17:00)
[2020-02-16] MEDS ORDERED: EPINEPHrine HCL 1 MG/10 ML SYRG ONE (17:03)
[2020-02-16] MEDS ORDERED: ATROPINE SULF 0.5 MG/5ML SYR ONE (17:03)
[2020-02-16] MEDS ORDERED: NOREPINEPHRINE 8 MG/250ML KIT 250 ML IV ONE (17:09)
[2020-02-16] MEDS ORDERED: NOREPINEPHRINE 8 MG/250ML KIT 250 ML IV SCH (17:25)
[2020-02-16 17:43] LABS: Basophils # (auto) 0.1 10 ^3/uL (0-0.2); Basophils % (auto) 1.2 % (0.0-2.0); Eosinophils # (auto) 0.1 10 ^3/uL (0-0.8); Eosinophils % (auto) 1.6 % (0.0-7.0); Hematocrit 41.2 % (36.0-46.0); Hemoglobin 13.6 g/dL (12.2-16.2); Lymphocytes # (auto) 3.4 10 ^3/uL (0.4-5.4); Lymphocytes % (auto) 42.2 % (10.0-50.0); Mean Corpuscular Hemoglobin 28.7 pg (28.0-32.0); Mean Corpuscular Hgb Conc. 33.1 g/dL (32.0-36.0); Mean Corpuscular Volume 86.8 fL (80.0-100.0); Monocytes # (auto) 0.6 10 ^3/uL (0-1.3); Monocytes % (auto) 7.6 % (0.0-12.0); Neutrophils # (auto) 3.9 10 ^3/uL (1.6-8.6); Neutrophils % (auto) 47.4 % (37.0-80.0); Nucleated Red Blood Cells % 0.2 %; Platelet Count (auto) 291 10^3/uL (140-450); Red Blood Cells 4.75 10^6/uL (4.0-5.20); Red Cell Distribution Width 15.3 % (11.8-14.3); White Blood Cell 8.2 10^3/uL (4.4-10.8)
[2020-02-16 18:04] LABS: Blood Urea Nitrogen 18 mg/dL (7-18); Calcium 8.9 mg/dL (8.5-10.1); Chloride 98 mmol/L (98-107); Sodium 136 mmol/L (136-145)
[2020-02-16 18:05] LABS: Salicylate 3.4 mg/dL (2.8-20.0)
[2020-02-16 18:07] LABS: Alanine Aminotransferase 15 U/L (13-56); Albumin 2.9 g/dL (3.4-5.0); Anion Gap 6 (5-15); Aspartate Aminotransferase 103 U/L (15-37); BUN/Creatinine Ratio 14.6; Blood Alcohol < 3.0 mg/dL (0-5); Carbon Dioxide 32 mmol/L (21-32); GFR African American 55 mL/min; GFR Non-African American 45 mL/min; Glucose 156 mg/dL (74-106)
[2020-02-16 18:10] LABS: Acetaminophen < 2.0 ug/mL (10-30); Alkaline Phosphatase 113 U/L (45-117); Bilirubin, Total 0.5 mg/dL (0.2-1.0); Total Protein 7.1 g/dL (6.4-8.2)
[2020-02-16 18:21] LABS: Potassium 2.9 mmol/L (3.5-5.1)
[2020-02-16] MEDS: DOPamine 1600MCG/ML D5W 250 ML IV SCH (18:30)
[2020-02-16 18:44] LABS: Urine Bacteria FEW /hpf (None Seen); Urine Blood 2+ /uL (Negative); Urine Hyaline Cast MANY /lpf (0 - 2); Urine Mucus FEW (None Seen); Urine Specific Gravity 1.015 (1.001-1.035); Urine WBC 136 /hpf (0 - 5); Urine WBC Clumps PRESENT /hpf (None Seen)
[2020-02-16 18:45] LABS: Amphetamine Screen, Urine NEGATIVE (NEGATIVE); Barbiturate Scree,Urine NEGATIVE (NEGATIVE); Benzodiazephine Screen, Urine NEGATIVE (NEGATIVE); Cannabinoid Screen, Urine NEGATIVE (NEGATIVE); Cocaine Screen, Urine NEGATIVE (NEGATIVE); Opiate Scree,Urine POSITIVE (NEGATIVE); Phencyclidine Screen, Urine NEGATIVE (NEGATIVE)
[2020-02-16] MEDS ORDERED: MORPHINE SULF INJ 2 MG/ML SYRINGE 1ML IV PRN (19:15)
[2020-02-16] MEDS ORDERED: NITROGLYCERIN 0.4 MG SL TAB SL PRN (19:15)
[2020-02-16] MEDS ORDERED: ONDANSETRON HCL 4 MG/2 ML VIAL IV PRN (19:30)
[2020-02-16] MEDS ORDERED: SODIUM CHLORIDE 0.9% 1,000 ML IV SCH (19:30)
[2020-02-16] MEDS ORDERED: ACETAMINOPHEN 500 MG TAB PO PRN (19:30)
[2020-02-16] MEDS ORDERED: HYDROcodone-ACET 5/325MG TAB PO PRN (19:30)
[2020-02-16] MEDS ORDERED: IOHEXOL 300 MG/ML 100ML BOTTLE IJ ONE (20:37)
[2020-02-16] MEDS: BUDESONIDE (INHALATION) 0.5 MG/2 ML NEB NEB SCH (22:00)
[2020-02-17] VITALS (48 sets, daily range): BP systolic 32–196; BP diastolic 18–122
[2020-02-17] MEDS: EPINEPHrine HCL 250 ML IV SCH ×3 (00:06→06:00)
[2020-02-17] MEDS ORDERED: EPINEPHrine HCL 250 ML IV ONE (00:08)
[2020-02-17] MEDS ORDERED: PHENYLEPHRINE IV 250 ML IV ONE ×2 (02:18→08:14)
[2020-02-17] MEDS: PHENYLEPHRINE IV 250 ML IV SCH ×3 (02:45→06:00)
[2020-02-17] MEDS ORDERED: SODIUM BICARBONATE 8.4% INJ 50ML SYRINGE ONE (02:51)
[2020-02-17] MEDS ORDERED: VASOPRESSIN 20 UNIT/ML ONE (02:52)
[2020-02-17 02:54] LABS: Basophils # (auto) 0.1 10 ^3/uL (0-0.2); Basophils % (auto) 0.8 % (0.0-2.0); Eosinophils # (auto) 0 10 ^3/uL (0-0.8); Eosinophils % (auto) 0.1 % (0.0-7.0); Hematocrit 44.8 % (36.0-46.0); Hemoglobin 13.9 g/dL (12.2-16.2); Lymphocytes # (auto) 0.9 10 ^3/uL (0.4-5.4); Lymphocytes % (auto) 9.5 % (10.0-50.0); Mean Corpuscular Hemoglobin 28.5 pg (28.0-32.0); Mean Corpuscular Hgb Conc. 31.1 g/dL (32.0-36.0); Mean Corpuscular Volume 91.7 fL (80.0-100.0); Monocytes # (auto) 0.4 10 ^3/uL (0-1.3); Monocytes % (auto) 3.8 % (0.0-12.0); Neutrophils # (auto) 8.1 10 ^3/uL (1.6-8.6); Neutrophils % (auto) 85.8 % (37.0-80.0); Platelet Count (auto) 263 10^3/uL (140-450); Red Blood Cells 4.88 10^6/uL (4.0-5.20); Red Cell Distribution Width 15.8 % (11.8-14.3); White Blood Cell 9.4 10^3/uL (4.4-10.8)
[2020-02-17 03:09] LABS: Albumin 2.2 g/dL (3.4-5.0); Calcium 8.3 mg/dL (8.5-10.1)
[2020-02-17 03:12] LABS: BUN/Creatinine Ratio 8.6; Bilirubin, Total 1.3 mg/dL (0.2-1.0); Total Protein 6.1 g/dL (6.4-8.2)
[2020-02-17] MEDS: VASOPRESSIN 50 UNITS in D5W 5% 247.5 ML IV SCH ×2 (03:45→04:00)
[2020-02-17] MEDS ORDERED: SODIUM BICARBONATE 8.4 % INJ 50ML VIAL IV ONE (04:00)
[2020-02-17] MEDS: SODIUM BICARBONATE 50ML VIAL 100 ML in SODIUM CHLORIDE 0.9% 1,000 ML IV SCH ×2 (04:00→04:15)
[2020-02-17] MEDS: DOPamine 1600MCG/ML D5W 250 ML IV SCH ×2 (06:00→12:00)
[2020-02-17] MEDS ORDERED: ALBUTEROL SULF 2.5 MG/0.5ML(0.5%) NEB SOLN NEB SCH ×2 (06:00→14:00)
[2020-02-17] MEDS ORDERED: IPRATROPIUM BROM 0.5 MG/2.5ML INH SOL NEB SCH ×2 (06:00→14:00)
[2020-02-17] MEDS: BUDESONIDE (INHALATION) 0.5 MG/2 ML NEB NEB SCH (06:46)
[2020-02-17] MEDS ORDERED: cefTRIAXone 1GM/50ML D5W 50 ML IV SCH (09:00)
[2020-02-17] MEDS ORDERED: PHENYLEPHRINE INJ 40 MG in SODIUM CHL 0.9% 250 ML IV SCH (09:34)
[2020-02-17] MEDS ORDERED: NOREPINEPHRINE BITARTRATE 16 MG in SODIUM CHL 0.9% 250 ML IV SCH (09:34)
[2020-02-17] MEDS ORDERED: AZITHROMYCIN 500MG/ 250ML 250 ML IV SCH (10:00)
[2020-02-17] MEDS ORDERED: FAMOTIDINE 20 MG TAB PO SCH (10:00)
[2020-02-17] MEDS ORDERED: CHOLECALCIFEROL (VITD3) 1,000IU=25mCg TAB PO SCH (10:00)
[2020-02-17] MEDS ORDERED: ASCORBIC ACID 500 MG TAB PO SCH (10:00)
[2020-02-17] MEDS ORDERED: ENOXAPARIN SOD 40 MG/0.4 ML SYRINGE SC SCH (10:00)
[2020-02-17] MEDS ORDERED: SODIUM BICARBONATE 8.4% INJ 50ML SYRINGE IV ONE (13:45)
[2020-02-17] MEDS ORDERED: EPINEPHrine HCL 1 MG/10 ML SYRG IV ONE (13:45)
[2020-02-17] MEDS ORDERED: NALOXONE HCL 1MG/ML 2ML SYRINGE IV ONE (13:45)
[2020-02-17] MEDS ORDERED: CALCIUM CHLOR(10%) 100MG/ML 10ML SYRINGE IV ONE (13:45)
== END 2020-02-17 14:15 | disposition expired | DRG 917 ==
LOC: EDBD 16:44 → ER 16:44 → TELE 16:45 → ICU WEST 23:26
PROVIDERS: ADMIT Nurse Practitioner Acute Care; ATTEND Internal Medicine
PROC: 5A1935Z Respiratory Ventilation, Less than 24 Consecutive Hours (ICD-10-PCS; principal; 2020-02-16)
PROC: 0BH17EZ Insertion of Endotracheal Airway into Trachea, Via Natural or Artificial Opening (ICD-10-PCS; 2020-02-16)
PROC: 5A12012 Performance of Cardiac Output, Single, Manual (ICD-10-PCS; 2020-02-16)
DX: T44.1X1A Poisoning by other parasympathomimetics [cholinergics], accidental (unintentional), initial encounter (principal); A41.9 Sepsis, unspecified organism; J96.01 Acute respiratory failure with hypoxia; J18.9 Pneumonia, unspecified organism; G93.41 Metabolic encephalopathy; R65.21 Severe sepsis with septic shock; J96.02 Acute respiratory failure with hypercapnia; J44.0 Chronic obstructive pulmonary disease with (acute) lower respiratory infection; Z03.818 Encounter for observation for suspected exposure to other biological agents ruled out; E87.6 Hypokalemia; J44.9 Chronic obstructive pulmonary disease, unspecified; R40.2430 Glasgow coma scale score 3-8, unspecified time; I46.9 Cardiac arrest, cause unspecified; F02.80 Dementia in other diseases classified elsewhere, unspecified severity, without behavioral disturbance, psychotic disturbance, mood disturbance, and anxiety; G30.9 Alzheimer's disease, unspecified; G40.909 Epilepsy, unspecified, not intractable, without status epilepticus; F17.210 Nicotine dependence, cigarettes, uncomplicated; I11.0 Hypertensive heart disease with heart failure; I48.91 Unspecified atrial fibrillation; I50.9 Heart failure, unspecified; Z66 Do not resuscitate; F41.9 Anxiety disorder, unspecified; T14.91XA Suicide attempt, initial encounter; I49.9 Cardiac arrhythmia, unspecified; F32.9 Major depressive disorder, single episode, unspecified; Z80.0 Family history of malignant neoplasm of digestive organs; Z80.1 Family history of malignant neoplasm of trachea, bronchus and lung; Z79.899 Other long term (current) drug therapy; Z80.3 Family history of malignant neoplasm of breast; Z80.41 Family history of malignant neoplasm of ovary; Z80.8 Family history of malignant neoplasm of other organs or systems; Z81.8 Family history of other mental and behavioral disorders; Z82.0 Family history of epilepsy and other diseases of the nervous system; Z82.49 Family history of ischemic heart disease and other diseases of the circulatory system; Z82.3 Family history of stroke; Z82.62 Family history of osteoporosis; Z83.3 Family history of diabetes mellitus; Z82.5 Family history of asthma and other chronic lower respiratory diseases; Z86.73 Personal history of transient ischemic attack (TIA), and cerebral infarction without residual deficits; Z90.710 Acquired absence of both cervix and uterus; Z88.1 Allergy status to other antibiotic agents; Z88.0 Allergy status to penicillin; Z88.2 Allergy status to sulfonamides
CPT/HCPCS: 31500; 36415; 36556; 36600; 51702; 71045; 80053; 80307; 80320; 80329; 81001; 82728; 82805; 82962; 83605; 83615; 85025; 85379; 87040; 87070; 87077; 87081; 87186; 87205; 87804; 87880; 92950; 94002; 94003; 94640; 99291; G0378; J0171; J0330; J0461; J0696; J2250; J3480; J7042; J7060